=== PATIENT | male | born 1970 | race Caucasian/White ===

== ENCOUNTER 2016-07-27 17:53 | Emergency (ER) | payer MEDICAID ==
[2016-07-27] MEDS ORDERED: HYDROcod/ACETAM 5/325 MG TABLET PO STA (18:08)
[2016-07-27] MEDS ORDERED: HYDROcod/ACETAM 5/325 MG TABLET ONE (18:15)
== END 2016-07-27 19:09 | disposition home or self-care (01) ==
DX: S67.21XA Crushing injury of right hand, initial encounter (principal); W23.0XXA Caught, crushed, jammed, or pinched between moving objects, initial encounter; Y93.89 Activity, other specified; I10 Essential (primary) hypertension; F17.200 Nicotine dependence, unspecified, uncomplicated
CPT/HCPCS: 29125; 73130; 99283; A9270

== ENCOUNTER 2016-08-02 | Outpatient (CLI) | payer MEDICAID | END 2016-08-02 18:16 | disposition EMS.NT | DX: R10.11 Right upper quadrant pain (principal) ==

== ENCOUNTER 2016-08-02 18:59 | Emergency (ER) | payer MEDICAID ==
[2016-08-02] MEDS ORDERED: HYDROmorphone 1 MG/ML SYRINGE IVP STA (20:23)
[2016-08-02] MEDS ORDERED: SODIUM CHLORIDE 0.9% 1,000 ML IV ONE (20:23)
[2016-08-02] MEDS ORDERED: HYDROmorphone 1 MG/ML SYRINGE ONE (20:25)
[2016-08-02] MEDS ORDERED: MAG HYDROX/AL HYDROX/SIMETH 30 ML UDC PO STA (21:35)
[2016-08-02] MEDS ORDERED: LIDOCAINE VISCOUS 2% 15 ML UDC MM STA (21:35)
[2016-08-02] MEDS ORDERED: PHENobarb/HYOSCY/ATROPINE/SCOP 5 ML SYRINGE PO STA (21:35)
[2016-08-02] MEDS ORDERED: SUCRALFATE 1 GM/10 ML UDC PO STA (21:35)
[2016-08-02] MEDS ORDERED: ACETAMINOPHEN 1,000 MG/100 ML 100 ML IV STA (21:35)
[2016-08-02] MEDS ORDERED: PHENobarb/HYOSCY/ATROPINE/SCOP 5 ML SYRINGE PO ONE (21:45)
[2016-08-02] MEDS ORDERED: LIDOCAINE VISCOUS 2% 15 ML UDC MM ONE (21:45)
[2016-08-02] MEDS ORDERED: SUCRALFATE 1 GM/10 ML UDC ONE (21:45)
[2016-08-02] MEDS ORDERED: ACETAMINOPHEN 1,000 MG/100 ML 100 ML IV ONE (21:46)
[2016-08-02] MEDS ORDERED: MAG HYDROX/AL HYDROX/SIMETH 30 ML UDC ONE (21:46)
[2016-08-02] MEDS ORDERED: IOPAMIDOL-300 100 ML VIAL IVP ONE (22:59)
[2016-08-02] MEDS ORDERED: HYDROcod/ACETAM 5/325 MG TABLET PO STA (23:01)
[2016-08-02] MEDS ORDERED: HYDROcod/ACETAM 5/325 MG TABLET ONE (23:03)
[2016-08-02] MEDS ORDERED: FAMOTIDINE 20 MG TABLET PO STA (23:31)
[2016-08-02] MEDS ORDERED: FAMOTIDINE 20 MG TABLET ONE (23:33)
== END 2016-08-02 23:53 | disposition home or self-care (01) ==
DX: K29.70 Gastritis, unspecified, without bleeding (principal); F10.21 Alcohol dependence, in remission; Z90.49 Acquired absence of other specified parts of digestive tract; I10 Essential (primary) hypertension; F17.200 Nicotine dependence, unspecified, uncomplicated
CPT/HCPCS: 36415; 74177; 76705; 80053; 83690; 85025; 96361; 96365; 96375; 99285; A9270; J0131; J1170; Q9967

== ENCOUNTER 2016-08-09 | Outpatient (CLI) | payer MEDICAID | END 2016-08-09 17:08 | disposition critical access hospital (66) | DX: R07.9 Chest pain, unspecified (principal) | CPT/HCPCS: A0425; A0427 ==

== ENCOUNTER 2016-08-09 17:54 | Emergency (ER) | payer MEDICAID ==
[2016-08-09] MEDS ORDERED: HYDROcod/ACETAM 5/325 MG TABLET PO STA (18:05)
[2016-08-09] MEDS ORDERED: HYDROcod/ACETAM 5/325 MG TABLET ONE (18:09)
== END 2016-08-09 19:29 | disposition home or self-care (01) ==
DX: R07.89 Other chest pain (principal); I10 Essential (primary) hypertension; F17.200 Nicotine dependence, unspecified, uncomplicated; Z87.19 Personal history of other diseases of the digestive system; Z87.898 Personal history of other specified conditions
CPT/HCPCS: 36415; 71020; 80053; 83690; 84484; 85025; 93005; 93010; 99283; 99284; A9270

== ENCOUNTER 2016-08-28 | Emergency (ER) | payer MEDICAID | END 2016-08-28 08:43 | disposition home or self-care (01) ==

== ENCOUNTER 2016-09-20 18:09 | Emergency (ER) | payer MEDICAID ==
[2016-09-20] MEDS ORDERED: KETOROLAC 60 MG/2 ML VIAL IM STA (18:36)
[2016-09-20] MEDS ORDERED: DEXAMETHASONE 10 MG/ML VIAL PO STA (18:36)
[2016-09-20] MEDS ORDERED: DEXAMETHASONE 10 MG/ML VIAL ONE (18:47)
[2016-09-20] MEDS ORDERED: KETOROLAC 60 MG/2 ML VIAL ONE (18:48)
[2016-09-20] MEDS ORDERED: CHERRY SYRUP 10 ML UDC PO ONE (18:48)
== END 2016-09-20 18:56 | disposition home or self-care (01) ==
DX: I10 Essential (primary) hypertension (principal); M54.41 Lumbago with sciatica, right side; F17.200 Nicotine dependence, unspecified, uncomplicated
CPT/HCPCS: 96372; 99283; A9270

== ENCOUNTER 2016-10-07 10:29 | Emergency (ER) | payer MEDICAID | END 2016-10-07 12:45 | disposition home or self-care (01) | DX: S46.912A Strain of unspecified muscle, fascia and tendon at shoulder and upper arm level, left arm, initial encounter (principal); S40.022A Contusion of left upper arm, initial encounter; X50.0XXA Overexertion from strenuous movement or load, initial encounter; Y93.89 Activity, other specified; Y92.009 Unspecified place in unspecified non-institutional (private) residence as the place of occurrence of the external cause; I10 Essential (primary) hypertension; F17.200 Nicotine dependence, unspecified, uncomplicated ==

== ENCOUNTER 2016-11-03 14:09 | Emergency (ER) | payer MEDICAID ==
[2016-11-03] MEDS ORDERED: oxyCOD/ACETAMIN 5 MG/325 MG TABLET PO STA (15:15)
[2016-11-03] MEDS ORDERED: CEPHALEXIN 250 MG CAPSULE PO STA (15:15)
[2016-11-03] MEDS ORDERED: oxyCOD/ACETAMIN 5 MG/325 MG TABLET PO ONE (15:25)
[2016-11-03] MEDS ORDERED: CEPHALEXIN 250 MG CAPSULE PO ONE (15:25)
== END 2016-11-03 15:31 | disposition home or self-care (01) ==
DX: K04.7 Periapical abscess without sinus (principal); I10 Essential (primary) hypertension; F17.200 Nicotine dependence, unspecified, uncomplicated
CPT/HCPCS: 99283; A9270

== ENCOUNTER 2016-11-06 23:44 | Emergency (ER) | payer MEDICAID ==
[2016-11-07] MEDS: SODIUM CHLORIDE 0.9% 1,000 ML IV ONE (00:25)
[2016-11-07 00:37] LABS: BASOPHILS % (AUTO) 0.5 %; EOSINOPHILS # (AUTO) 0.1 10^3/uL (0.0-0.7); EOSINOPHILS % (AUTO) 2.5 %; HCT - HEMATOCRIT 41.3 % (42.0-52.0); HGB - HEMOGLOBIN 13.9 g/dL (14.0-18.0); LYMPHOCYTES # (AUTO) 1.7 10^3/uL (1.5-3.5); LYMPHOCYTES % (AUTO) 34.6 %; MEAN CORPUSCULAR HEMOGLOBIN 29.3 pg (27.0-31.0); MEAN CORPUSCULAR HGB CONC 33.7 g/dL (32.0-36.0); MEAN CORPUSCULAR VOLUME 86.8 fL (80.0-94.0); MEAN PLATELET VOLUME 7.9 fL (7.4-11.4); MONOCYTES # (AUTO) 0.5 10^3/uL (0.0-1.0); MONOCYTES % (AUTO) 10.3 %; NEUTROPHILS # (AUTO) 2.5 10^3/uL (1.5-6.6); NEUTROPHILS % (AUTO) 52.1 %; NUCLEATED RED BLOOD CELLS AUTO 0.2 /100WBC; RED BLOOD COUNT 4.76 10^6/uL (4.70-6.10); RED CELL DISTRIBUTION WIDTH 13.8 % (12.0-15.0); UNCORRECTED WHITE BLOOD COUNT 4.8 x10^3/uL; WHITE BLOOD COUNT 4.8 x10^3/uL (4.8-10.8)
[2016-11-07 00:44] VITALS: BP 159/98
[2016-11-07 00:46] LABS: ALBUMIN/GLOBULIN RATIO 1.2 (1.0-2.2); BILIRUBIN,TOTAL 0.3 mg/dL (0.2-1.0); CALCIUM 8.9 mg/dL (8.5-10.3); POTASSIUM 3.8 mmol/L (3.5-5.0); TOTAL PROTEIN 7.1 g/dL (6.7-8.2)
--- NOTE | 2016-11-07 01:28 | ED Physician Documentation ---
History of Present Illness - Stated complaint Stated Complaint: TOOTHACHE - Chief complaint Chief Complaint: Abd Pain - History obtained from History obtained from: Patient, Family - Additonal information Additional information: Patient is a 46 year old male with a history of diabetes who is presenting to the emergency department for nausea and vomiting. Patient states that he was diagnosed with a facial infection earlier this week. He was started on antibiotics (keflex). Patient has been taking the antibiotics and the infection has been improving but he has been throwing up and having a hard time keeping anything down. Patient talked to his friend who is a retired dentist and he told him he might be septic and that he should come to the emergency department. Review of Systems Constitutional: reports: Chills. denies: Fever Eyes: denies: Loss of vision, Photophobia Ears: denies: Ear pain, Drainage/discharge Nose: denies: Rhinorrhea / runny nose, Congestion, Epistaxis Throat: reports: Dental pain / toothache, Oral lesions / sores. denies: Sore throat Cardiac: denies: Chest pain / pressure, Palpitations, Calf pain Respiratory: denies: Dyspnea, Cough, Wheezing GI: reports: Abdominal Pain, Nausea, Vomiting. denies: Constipation, Diarrhea : denies: Dysuria, Frequency, Hesitancy Skin: denies: Rash, Lesions, Abrasion (s) Musculoskeletal: denies: Neck pain, Back pain Neurologic: denies: Generalized weakness, Focal weakness, Numbness Immunocompromised: denies: Immunocompromised PD PAST MEDICAL HISTORY - Past Medical History Cardiovascular: Hypertension Respiratory: None Neuro: None Endocrine/Autoimmune: None GI: Pancreatitis, Cholelithiasis : None HEENT: None Psych: None Musculoskeletal: None Derm: None - Past Surgical History Past Surgical History: Yes General: Cholecystectomy, Appendectomy - Present Medications Home Medications: Ambulatory Orders Medication Instructions Recorded Confirmed Lisinopril 5 mg PO DAILY #30 tablet 09/20/16 11/06/16 Cephalexin [Keflex] 500 mg PO QID #24 capsule 11/03/16 11/06/16 Oxycodone HCl/Acetaminophen 1 each PO Q6H PRN #15 tablet 11/03/16 11/06/16 [Percocet 5-325 mg Tablet] Ondansetron Odt [Zofran] 4 mg TL Q6H PRN #14 tablet 11/07/16 Penicillin V Potassium 500 mg PO Q6HR 7 Days 11/07/16 - Allergies Allergies/Adverse Reactions: Allergies Allergy/AdvReac Type Severity Reaction Status Date / Time No Known Drug Allergies Allergy Verified 11/06/16 23:52 - Social History Does the pt smoke?: Yes Smoking Status: Current every day smoker Does the pt drink ETOH?: Yes Does the pt have substance abuse?: No - Immunizations Immunizations are current?: Yes - POLST Patient has POLST: No PD ED PE NORMAL - Vitals Vital signs reviewed: Yes - General General: Alert and oriented X 3, No acute distress, Well developed/nourished - HEENT HEENT: Atraumatic, PERRL, Pharynx benign - Neck Neck: Supple, no meningeal sign, No JVD - Cardiac Cardiac: RRR, No murmur - Respiratory Respiratory: No respiratory distress, Clear bilaterally - Abdomen Abdomen: Soft, Non tender, Non distended - Derm Derm: Normal color, Warm and dry, No rash - Extremities Extremities: No deformity, No tenderness to palpate, Normal ROM s pain - Neuro Neuro: Alert and oriented X 3, 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, No motor deficit, No sensory deficit, Normal speech - Psych Psych: Normal mood, Normal affect PD ED PE EXPANDED - HEENT HEENT: Other (multiple dental caries, minimal facial swelling, no surrounding cellulitis) Results - Vitals Vitals: Vital Signs - 24 hr 11/06/16 11/07/16 23:48 00:42 Temperature 36.4 C L Heart Rate 90 79 Respiratory 20 19 Rate Blood Pressure 174/111 H 159/98 H O2 Saturation 98 98 Oxygen O2 Source Room air - Labs Labs: Laboratory Tests 11/07/16 11/07/16 00:25 00:25 WBC 4.8 RBC 4.76 Hgb 13.9 L Hct 41.3 L MCV 86.8 MCH 29.3 MCHC 33.7 RDW 13.8 Plt Count 194 MPV 7.9 Neut # 2.5 Lymph # 1.7 Vil[place] # 0.5 Eos # 0.1 Baso # 0.0 Absolute Nucleated RBC 0.01 Nucleated RBCs 0.2 Sodium 140 Potassium 3.8 Chloride 104 Carbon Dioxide 28 Anion Gap 8.0 BUN 10 Creatinine 1.0 Estimated GFR (MDRD) 80 L Glucose 108 H Calcium 8.9 Total Bilirubin 0.3 AST 62 H ALT 60 Alkaline Phosphatase 255 H Total Protein 7.1 Albumin 3.8 Globulin 3.3 Albumin/Globulin Ratio 1.2 Lipase 19 L PD MEDICAL DECISION MAKING - ED course Complexity details: reviewed old records, reviewed results, re-evaluated patient ED course: Patient was seen and examined at bedside. IV access was gained and labs were drawn. Patient was treated with a fluid bolus. Patient was not febrile, nor was he tachycardic. When patient's diagnostics came back he did not fulfill any of the sirs criteria. Patient had no episodes of emesis while in the emergency department. Patient was given detailed discharge and return instructions. Patient was stable for discharge with outpatient follow up. Departure - Departure Disposition: Home, Self Care Clinical Impression: Dental abscess Condition: Good Instructions: ED Abscess Dental Follow-Up: primary,care provider [Other] Prescriptions: Penicillin V Potassium 500 mg PO Q6HR 7 Days Ondansetron Odt [Zofran] 4 mg TL Q6H PRN #14 tablet PRN Reason: Nausea / Vomiting Comments: Your diagnostics today were within normal limits. Your symptoms are more likely secondary to side effect of the medication as opposed to sepsis. You have been prescribed zofran and you should take it a half hour before taking your medication. You should try to complete the entire course of antibiotics. If you are unable to you may switch to the penicillin. You should still follow up with your pmd or dentist for further evaluation in a few days.
== END 2016-11-07 01:52 | disposition home or self-care (01) ==
LOC: ED 23:44
DX: K04.7 Periapical abscess without sinus (principal); E11.9 Type 2 diabetes mellitus without complications; I10 Essential (primary) hypertension; F17.200 Nicotine dependence, unspecified, uncomplicated
CPT/HCPCS: 36415; 80053; 83690; 85025; 99283

== ENCOUNTER 2016-12-19 07:26 | Emergency (ER) | payer MEDICAID ==
[2016-12-19] MEDS ORDERED: ACETAMINOPHEN 325 MG TABLET PO STA (08:05)
[2016-12-19] MEDS ORDERED: CYCLOBENZAPRINE 10 MG TABLET PO STA (08:05)
[2016-12-19] MEDS ORDERED: DEXAMETHASONE 10 MG/ML VIAL PO STA (08:05)
[2016-12-19] MEDS ORDERED: CHERRY SYRUP 10 ML UDC PO ONE (08:07)
[2016-12-19] MEDS ORDERED: CYCLOBENZAPRINE 10 MG TABLET PO ONE (08:07)
[2016-12-19] MEDS ORDERED: DEXAMETHASONE 10 MG/ML VIAL ONE (08:07)
[2016-12-19] MEDS ORDERED: ACETAMINOPHEN 325 MG TABLET PO ONE (08:07)
--- NOTE | 2016-12-19 08:14 | ED Physician Documentation ---
History of Present Illness - Stated complaint Stated Complaint: R SHOULDER PX - Chief complaint Chief Complaint: Ext Problem - Additonal information Additional information: hx from pt 46 male [address] ER visit to [facility] in 2017 to ER today for R shoulder pain of 1 month duration states it started a month ago while using a car [place] (not a job injury per pt) worse with movement coral ABD pain to anterior/lateral shoulder, radiates up lateral neck and down radial arm to thumb no numbness or weakness no fever cough CP dyspnea abd pain or leg swelling Review of Systems Constitutional: denies: Fever, Chills Cardiac: denies: Chest pain / pressure Respiratory: denies: Dyspnea, Cough GI: denies: Abdominal Pain Musculoskeletal: reports: Neck pain, Joint pain Neurologic: denies: Focal weakness, Numbness Endocrine: denies: Easy bruising / bleeding Immunocompromised: denies: Immunocompromised PD PAST MEDICAL HISTORY - Past Medical History Cardiovascular: Hypertension Respiratory: None Neuro: None Endocrine/Autoimmune: None GI: Pancreatitis, Cholelithiasis : None HEENT: None Psych: None Musculoskeletal: None Derm: None - Past Surgical History Past Surgical History: Yes General: Cholecystectomy, Appendectomy - Present Medications Home Medications: Ambulatory Orders Medication Instructions Recorded Confirmed Lisinopril 5 mg PO DAILY #30 tablet 09/20/16 12/19/16 Cyclobenzaprine [Flexeril] 10 mg PO TID PRN #20 tablet 12/19/16 predniSONE [Deltasone] 20 mg PO [id number] #21 tab 12/19/16 - Allergies Allergies/Adverse Reactions: Allergies Allergy/AdvReac Type Severity Reaction Status Date / Time No Known Drug Allergies Allergy Verified 12/19/16 07:30 - Social History Does the pt smoke?: Yes Smoking Status: Current every day smoker Does the pt drink ETOH?: Yes Does the pt have substance abuse?: No - Immunizations Immunizations are current?: Yes - POLST Patient has POLST: No PD ED PE NORMAL - Vitals Vital signs reviewed: Yes - General General: Alert and oriented X 3 - HEENT HEENT: Atraumatic - Neck Neck: No bony TTP (and no redness or swelling) - Cardiac Cardiac: RRR - Respiratory Respiratory: No respiratory distress, Clear bilaterally - Abdomen Abdomen: Soft, Non tender - Extremities Extremities: No edema, No calf tenderness / cord, Other (R shoulder TTP anterior , no erythema warmth or sig swelling, pain with ABD but less so with ext and int ext, shoulder ABD bicep tricep wrist ext finger ABD OK 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, + sensation to ulnar median radial distribution, strong radial pulse, brisk cap refill) - Neuro Neuro: No motor deficit, No sensory deficit Results - Vitals Vitals: Vital Signs - 24 hr 12/19/16 07:28 Temperature 36.5 C Heart Rate 95 Respiratory 17 Rate Blood Pressure 168/115 H O2 Saturation 99 Oxygen O2 Source Room air PD MEDICAL DECISION MAKING - ED course ED course: seems like muscular R shoulder pain no sign of septic jt no blunt trauma recalled - more of an overuse type injury some radicualr componennt as well will tx with steroids for radicular pain, tylenol and mm relaxant, sling as needed, note for work and rec ortho referral - given [place] of [place] Departure - Departure Disposition: 01 Home, Self Care Clinical Impression: Shoulder impingement Qualifiers: Laterality: right Qualified Code(s): M75.41 - Impingement syndrome of right shoulder Condition: Good Instructions: Impingement Syndrome Follow-Up: [facility] [Provider Group] Prescriptions: predniSONE [Deltasone] 20 mg PO [id number] #21 tab Cyclobenzaprine [Flexeril] 10 mg PO TID PRN #20 tablet PRN Reason: Spasms Comments: In addition to the steroids and muscle relaxant, you can take tylenol for the pain and apply ice for up to 20 min at a time. You can also try apply the lidocaine patches for up to 12 hr at a time directly to the shoulder Wear the sling as needed for comfort - but be sure to do some range of motion with your shoulder every day to prevent joint stiffness and adhesions Please follow up with orthopedics Also please get your blood pressure rechecked - it was high today Forms: Activity restrictions
[2016-12-19 08:30] VITALS: BP 145/88
== END 2016-12-19 08:30 | disposition home or self-care (01) ==
LOC: ED 07:26
DX: M75.41 Impingement syndrome of right shoulder (principal); I10 Essential (primary) hypertension; F17.200 Nicotine dependence, unspecified, uncomplicated
CPT/HCPCS: 99283; A9270

== ENCOUNTER 2017-03-30 00:11 | Emergency (ER) | payer MEDICAID ==
--- NOTE | 2017-03-30 01:56 | ED Physician Documentation ---
PD HPI LOWER EXT INJURY - Stated complaint Stated Complaint: RT KNEE PAIN - Chief complaint Chief Complaint: Ext Problem - History obtained from History obtained from: Patient - History of Present Illness PD HPI LOW EXT INJURY LOCATION: Right, Knee Type of injury: Twist Timing - onset: How many weeks ago (has had some pains in knee intermittently for years with clicking and popping at times. He will feel it lock up and has to force knee straight to loosen it. It has been hurting more the past 3 weeks and has been unable to walk on it reasonably the past 1-2 days. 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 No: Weakness, Numbness Similar symptoms before: No diagnosis Recently seen: Not recently seen Review of Systems Constitutional: denies: Fever, Chills, Myalgias Skin: denies: Rash, Lesions Musculoskeletal: reports: Joint pain, Joint swelling. denies: Back pain Neurologic: denies: Focal weakness, Numbness PD PAST MEDICAL HISTORY - Past Medical History Cardiovascular: Hypertension Respiratory: None Neuro: None Endocrine/Autoimmune: None GI: Pancreatitis, Cholelithiasis : None HEENT: None Psych: None Musculoskeletal: None Derm: None - Past Surgical History Past Surgical History: Yes General: Cholecystectomy, Appendectomy - Present Medications Home Medications: Ambulatory Orders Medication Instructions Recorded Confirmed HYDROcod/ACETAM 5/325 [[place] 5/325] 1 tab PO Q6H PRN #15 tablet 03/30/17 Naproxen 375 mg PO BID #20 tablet 03/30/17 - Allergies Allergies/Adverse Reactions: Allergies Allergy/AdvReac Type Severity Reaction Status Date / Time No Known Drug Allergies Allergy Verified 03/30/17 00:55 - Social History Does the pt smoke?: Yes Smoking Status: Current every day smoker Does the pt drink ETOH?: Yes Does the pt have substance abuse?: No - Immunizations Immunizations are current?: Yes - POLST Patient has POLST: No PD ED PE NORMAL - Vitals Vital signs reviewed: Yes - General General: Alert and oriented X 3, Well developed/nourished, Other (appears in pain and is guarding ROM of the right knee. ) - Back Back: No spinal TTP - Derm Derm: Normal color, Warm and dry, No rash - Extremities Extremities: Normal ROM s pain, Other (right knee with mild effusion. Guarded ROM limits exam. No noted laxity nor pain with cruciate testing. Collateral testing hurts laterally without widening. ROM and meniscal loading to lateral aspect causes pain. No noted click/pop. ) - Neuro Neuro: Alert and oriented X 3, No motor deficit, No sensory deficit, Normal speech Results - Vitals Vitals: Oxygen O2 Source Room air PD MEDICAL DECISION MAKING - ED course Complexity details: considered differential (knee acts like it has had meniscal symptoms and now is likely torn meniscus. Did not see value in xrays. To see ortho; they likely will consider MRI. ), d/w patient Departure - Departure Disposition: 01 Home, Self Care Clinical Impression: Knee pain, acute Qualifiers: Laterality: right Qualified Code(s): M25.561 - Pain in right knee Acute meniscal injury of right knee Qualifiers: Encounter type: initial encounter Qualified Code(s): S83.8X1A - Sprain of other specified parts of right knee, initial encounter Condition: Stable Record reviewed to determine appropriate education?: Yes Instructions: ED Meniscal Injury Knee Poss Follow-Up: Sherrie Reid ARNP [Primary Care Provider] - Dana Lantigua MD [Provider Admit Priv/Credential] - Prescriptions: Naproxen 375 mg PO BID #20 tablet HYDROcod/ACETAM 5/325 [[place] 5/325] 1 tab PO Q6H PRN #15 tablet PRN Reason: Pain Comments: Knee brace when up and around to help reduce motion on the cartilage. I think this is a meniscal tear. Follow-up with orthopedics, call later today for an appointment. They likely will see within the next week. Crutches if needed for comfort but you do not have to be on crutches. Naproxen twice daily for the next 7-10 days. Add Tylenol or hydrocodone if needed for pain. Follow-up with orthopedics regarding further assessment with exam and possible imaging. Forms: Activity restrictions Discharge Date/Time: 03/30/17 03:30
[2017-03-30] MEDS ORDERED: HYDROcod/ACET 5/325 Prepack 6 PO ONE ×2 (02:42→03:14)
[2017-03-30] MEDS ORDERED: IBUPROFEN 600 MG TABLET PO STA (02:42)
[2017-03-30] MEDS ORDERED: HYDROcod/ACETAM 5/325 MG TABLET PO STA (02:42)
[2017-03-30] MEDS ORDERED: IBUPROFEN 600 MG TABLET PO ONE (03:14)
[2017-03-30] MEDS ORDERED: HYDROcod/ACETAM 5/325 MG TABLET ONE (03:14)
[2017-03-30 03:42] VITALS: BP 136/88
== END 2017-03-30 03:30 | disposition home or self-care (01) ==
LOC: ED 00:11
DX: S83.8X1A Sprain of other specified parts of right knee, initial encounter (principal); X50.0XXA Overexertion from strenuous movement or load, initial encounter; M25.561 Pain in right knee; I10 Essential (primary) hypertension; Z87.898 Personal history of other specified conditions; F17.200 Nicotine dependence, unspecified, uncomplicated
CPT/HCPCS: 99283; A9270

== ENCOUNTER 2017-09-03 10:05 | Emergency (ER) | payer MEDICAID ==
[2017-09-03 10:21] VITALS: BP 224/111
--- NOTE | 2017-09-03 12:46 | ED Physician Documentation ---
PD HPI LOWER EXT INJURY - Stated complaint Stated Complaint: KNEE PX - Chief complaint Chief Complaint: Ext Problem - History obtained from History obtained from: Patient - History of Present Illness PD HPI LOW EXT INJURY LOCATION: Both, Knee Type of injury: No: Fall, Twist PD PAST MEDICAL HISTORY - Past Medical History Past Medical History: Yes Cardiovascular: Hypertension Respiratory: None Neuro: None Endocrine/Autoimmune: None GI: Pancreatitis, Cholelithiasis : None HEENT: None Psych: None Musculoskeletal: None Derm: None - Past Surgical History Past Surgical History: Yes General: Cholecystectomy, Appendectomy - Present Medications Home Medications: Ambulatory Orders Medication Instructions Recorded Confirmed HYDROcod/ACETAM 5/325 [[place] 5/325] 1 tab PO Q6H PRN #15 tablet 03/30/17 Naproxen 375 mg PO BID #20 tablet 03/30/17 Dexamethasone [Decadron] 4 mg PO DAILY #5 tablet 09/03/17 HYDROcodone/ACET 7.5/325 [[place] 1 each PO Q6H PRN #20 tablet 09/03/17 7.5/325] - Allergies Allergies/Adverse Reactions: Allergies Allergy/AdvReac Type Severity Reaction Status Date / Time No Known Drug Allergies Allergy Verified 03/30/17 00:55 - Social History Does the pt smoke?: Yes Smoking Status: Current every day smoker Does the pt drink ETOH?: Yes Does the pt have substance abuse?: No - Immunizations Immunizations are current?: Yes - POLST Patient has POLST: No PD ED PE NORMAL - Vitals Vital signs reviewed: Yes - General General: Alert and oriented X 3, No acute distress, Well developed/nourished, Other (limping gait favoiring right knee. ) - Neck Neck: Supple, no meningeal sign, No adenopathy - Cardiac Cardiac: RRR, No murmur - Respiratory Respiratory: Clear bilaterally - Derm Derm: Normal color, Warm and dry, No rash - Extremities Extremities: No edema, No calf tenderness / cord, Other (right knee with tenderness with minimal effusion. No Noted redness nor sores. ROm hurts but is not stuck/limited. ) Results - Vitals Vitals: Vital Signs - 24 hr 09/03/17 09/03/17 10:19 13:30 Temperature 36.5 C Heart Rate 90 78 Respiratory 17 17 Rate Blood Pressure 224/111 H O2 Saturation 99 Oxygen O2 Source Room air PD MEDICAL DECISION MAKING - ED course Complexity details: re-evaluated patient (I offered steroid and Marcaine injection at the knee (his cartilage is worn out, so no concern for single injection). I presume Ortho did not think Synvisc or such would work for him. Will give some pain meds short term. ), considered differential, d/w patient Departure - Departure Disposition: 01 Home, Self Care Clinical Impression: Knee pain, chronic Qualifiers: Laterality: right Qualified Code(s): M25.561 - Pain in right knee Condition: Stable Record reviewed to determine appropriate education?: Yes Instructions: ED Degenerative Joint Disease Follow-Up: Cierra Romero ARNP [Primary Care Provider] - Prescriptions: Dexamethasone [Decadron] 4 mg PO DAILY #5 tablet HYDROcodone/ACET 7.5/325 [[place] 7.5/325] 1 each PO Q6H PRN #20 tablet PRN Reason: Pain Comments: Try the hinged knee brace and see if that supports the near little bit better without causing stiffening. Decadron steroid anti-inflammatory for 5 days see if that helps. Continue hydrocodone if needed for pain. Consider an injection in the knee with steroid and pain medicine just to allow some improvement over the short-term. We could do that here potentially although the orthopedics can do it as well. Follow-up with orthopedist as planned in a few weeks. Discharge Date/Time: 09/03/17 13:31
[2017-09-03] MEDS ORDERED: DEXAMETHASONE 10 MG/ML VIAL PO STA (13:08)
[2017-09-03] MEDS ORDERED: HYDROcod/ACETAM 5/325 MG TABLET PO STA (13:08)
[2017-09-03] MEDS ORDERED: CHERRY SYRUP 10 ML UDC PO ONE (13:35)
== END 2017-09-03 13:31 | disposition home or self-care (01) ==
LOC: ED 10:05
DX: M25.561 Pain in right knee (principal); I10 Essential (primary) hypertension; F17.200 Nicotine dependence, unspecified, uncomplicated; Z79.891 Long term (current) use of opiate analgesic
CPT/HCPCS: 99283; A9270

== ENCOUNTER 2017-11-25 23:46 | Emergency (ER) | payer MEDICAID ==
[2017-11-26] MEDS ORDERED: cefTRIAXone 2 GM in SODIUM CHLORIDE 0.9% MINIBAG 100 ML IV STA (00:05)
[2017-11-26] MEDS ORDERED: SODIUM CHLORIDE 0.9% 1,000 ML IV ONE (00:05)
[2017-11-26 00:51] LABS: BASOPHILS # (AUTO) 0.1 10^3/uL (0.0-0.1); BASOPHILS % (AUTO) 0.5 %; EOSINOPHILS # (AUTO) 0.2 10^3/uL (0.0-0.7); EOSINOPHILS % (AUTO) 1.8 %; HGB - HEMOGLOBIN 13.3 g/dL (14.0-18.0); LYMPHOCYTES # (AUTO) 1.8 10^3/uL (1.5-3.5); LYMPHOCYTES % (AUTO) 18.6 %; MEAN CORPUSCULAR HEMOGLOBIN 28.9 pg (27.0-31.0); MEAN CORPUSCULAR HGB CONC 33.3 g/dL (32.0-36.0); MEAN CORPUSCULAR VOLUME 86.8 fL (80.0-94.0); MEAN PLATELET VOLUME 8.5 fL (7.4-11.4); MONOCYTES # (AUTO) 0.5 10^3/uL (0.0-1.0); MONOCYTES % (AUTO) 5.5 %; NEUTROPHILS # (AUTO) 7.2 10^3/uL (1.5-6.6); NEUTROPHILS % (AUTO) 73.6 %; PLT - PLATELET COUNT 137 10^3/uL (130-450); RED CELL DISTRIBUTION WIDTH 13.8 % (12.0-15.0); WHITE BLOOD COUNT 9.8 x10^3/uL (4.8-10.8)
[2017-11-26 01:02] LABS: ALBUMIN 3.6 g/dL (3.2-5.5); ALBUMIN/GLOBULIN RATIO 0.9 (1.0-2.2); BILIRUBIN,TOTAL 0.6 mg/dL (0.2-1.0); CALCIUM 8.5 mg/dL (8.5-10.3); TOTAL PROTEIN 7.5 g/dL (6.7-8.2)
[2017-11-26] MEDS ORDERED: KETOROLAC 60 MG/2 ML VIAL IVP STA (01:05)
[2017-11-26] MEDS ORDERED: SULFAMETH/TRIMETH DS 800/160 MG TABLET PO STA (01:24)
--- NOTE | 2017-11-26 01:29 | ED Physician Documentation ---
PD HPI SKIN - Stated complaint Stated Complaint: R LEG PX - Chief complaint Chief Complaint: Ext Problem - History obtained from History obtained from: Patient - History of Present Illness Timing - onset: How many days ago (3) Timing - details: Gradual onset, Still present Location: RLE Quality / character: Painful Associated symptoms: Fever Similar symptoms before: No diagnosis Recently seen: Not recently seen - Additional information Additional information: Patient is a 47 year old male who is presenting to the emergency department for pain, swelling and redness of his right lower leg. patient states that it has been going on for the last few days. patient states that it has been spreading up his leg. patient states that he has mild fevers as well. Patient has a history of drug abuse in the past but states that he is not currently injecting. Review of Systems Constitutional: reports: Fever Eyes: reports: Reviewed and negative Ears: reports: Reviewed and negative GI: reports: Nausea. denies: Abdominal Pain, Vomiting, Constipation, Diarrhea Skin: reports: Rash, Lesions Musculoskeletal: reports: Extremity pain, Extremity swelling Immunocompromised: denies: Immunocompromised PD PAST MEDICAL HISTORY - Past Medical History Cardiovascular: Hypertension Respiratory: None Endocrine/Autoimmune: None GI: Pancreatitis, Cholelithiasis : None HEENT: None Psych: None Musculoskeletal: None Derm: None - Past Surgical History Past Surgical History: Yes General: Cholecystectomy, Appendectomy - Present Medications Home Medications: Ambulatory Orders Medication Instructions Recorded Confirmed HYDROcod/ACETAM 5/325 [[place] 5/325] 1 tab PO Q6H PRN #15 tablet 03/30/17 Naproxen 375 mg PO BID #20 tablet 03/30/17 Dexamethasone [Decadron] 4 mg PO DAILY #5 tablet 09/03/17 HYDROcodone/ACET 7.5/325 [[place] 1 each PO Q6H PRN #20 tablet 09/03/17 7.5/325] Cephalexin [Keflex] 500 mg PO Q6H 7 Days capsule 11/26/17 Sulfamethox/Trimeth 800/160 1 each PO BID #14 tablet 11/26/17 [Bactrim Ds 800/160] - Allergies Allergies/Adverse Reactions: Allergies Allergy/AdvReac Type Severity Reaction Status Date / Time No Known Drug Allergies Allergy Verified 11/26/17 00:10 - Social History Does the pt smoke?: Yes Smoking Status: Current every day smoker Does the pt drink ETOH?: Yes Does the pt have substance abuse?: No - Immunizations Immunizations are current?: Yes - POLST Patient has POLST: No PD ED PE NORMAL - Vitals Vital signs reviewed: Yes - General General: Alert and oriented X 3, No acute distress - HEENT HEENT: Atraumatic, Moist mucous membranes - Neck Neck: Supple, no meningeal sign - Cardiac Cardiac: RRR - Respiratory Respiratory: No respiratory distress - Neuro Neuro: Alert and oriented X 3 Eye Opening: Spontaneous PD ED PE EXPANDED - Male Male : Normal lie/cremastaric, Other (no crepitus). No: Tenderness - Derm Derm: Rash (rash consistent with cellulitis, no drainable abscess) - Extremities ASHLEY LE visual: 1 - tenderness (cellulitis) 2 - tenderness (cellulits) Results - Vitals Vitals: Vital Signs - 24 hr 11/26/17 11/26/17 00:08 01:36 Temperature 36.4 C L Heart Rate 93 91 Respiratory 18 18 Rate Blood Pressure 159/92 H 151/98 H O2 Saturation 100 98 Oxygen O2 Source Room air - Labs Labs: Laboratory Tests 11/26/17 11/26/17 11/26/17 00:40 00:40 00:40 WBC 9.8 RBC 4.60 L Hgb 13.3 L Hct 39.9 L MCV 86.8 MCH 28.9 MCHC 33.3 RDW 13.8 Plt Count 137 MPV 8.5 Neut # 7.2 H Lymph # 1.8 [place] # 0.5 Eos # 0.2 Baso # 0.1 Absolute Nucleated RBC 0.00 Nucleated RBC % 0.0 Sodium 134 L Potassium 3.5 Chloride 101 Carbon Dioxide 26 Anion Gap 7.0 BUN 11 Creatinine 1.0 Estimated GFR (MDRD) 80 L Glucose 117 H Lactic Acid < 0.3 L Calcium 8.5 Total Bilirubin 0.6 AST 43 H ALT 48 Alkaline Phosphatase 239 H Total Protein 7.5 Albumin 3.6 Globulin 3.9 Albumin/Globulin Ratio 0.9 L Lipase 17 L PD MEDICAL DECISION MAKING - ED course Complexity details: reviewed old records, reviewed results, re-evaluated patient , considered differential, d/w patient ED course: Patient was seen and examined at bedside. IV access was gained and labs were drawn. patient's cellulitis was significant but there was no sign of gangrene. patient was treated with a dose of rocephin. patient's labs were unremarkable. patient was able to tolerate PO and was also given a dose of bactrim. patient required no further work up and was stable for discharge with outpatient follow up. Departure - Departure Disposition: 01 Home, Self Care Clinical Impression: Cellulitis Condition: Good Instructions: ED Infec Skin Cellulitis Follow-Up: Cierra Romero ARNP [Primary Care Provider] - Prescriptions: Cephalexin [Keflex] 500 mg PO Q6H 7 Days capsule Sulfamethox/Trimeth 800/160 [Bactrim Ds 800/160] 1 each PO BID #14 tablet Comments: Your symptoms today are being caused by a skin infection. You will need to be on two different antibiotics, keflex and bactrim. You will take them both for the entire week. You should monitor your infection to make sure that it is getting smaller. If your symptoms don't start improving over the next 48 hours you should return to the emergency department for evaluation. Otherwise you should follow up with your doctor this week. Discharge Date/Time: 11/26/17 01:44
[2017-11-26 01:36] VITALS: BP 151/98
== END 2017-11-26 01:44 | disposition home or self-care (01) ==
LOC: ED 23:46
DX: L03.115 Cellulitis of right lower limb (principal); I10 Essential (primary) hypertension; F17.200 Nicotine dependence, unspecified, uncomplicated
CPT/HCPCS: 36415; 80053; 83605; 83690; 85025; 87040; 96365; 99283; A9270

== ENCOUNTER 2018-03-05 17:43 | Emergency (ER) | payer MEDICAID ==
--- NOTE | 2018-03-05 18:03 | ED Physician Documentation ---
PD HPI SKIN - Stated complaint Stated Complaint: BUG BITE - Chief complaint Chief Complaint: Ext Problem - History obtained from History obtained from: Patient - History of Present Illness Timing - onset: How many weeks ago (1) Timing - duration: Weeks (1) Timing - details: Gradual onset, Still present Location: LUE (dorsum of hand) Quality / character: Painful, Discolored (red), Swelling, Draining (mildhe thought he had a bug bite a week ago, with small red and tender area on hand. This has grown in size the past 1-2 days.) Associated symptoms: No: Fever, N/V/D Contributing factors: Insect bite /sting (he believes it was insect bite initially) Recently seen: Not recently seen Review of Systems Constitutional: denies: Fever, Chills, Myalgias GI: denies: Nausea, Vomiting, Diarrhea Skin: reports: Lesions Neurologic: denies: Focal weakness, Numbness PD PAST MEDICAL HISTORY - Past Medical History Past Medical History: Yes Cardiovascular: Hypertension Respiratory: None Endocrine/Autoimmune: None GI: Pancreatitis, Cholelithiasis : None HEENT: None Psych: None Musculoskeletal: None Derm: None - Past Surgical History Past Surgical History: Yes General: Cholecystectomy, Appendectomy - Present Medications Home Medications: Ambulatory Orders Medication Instructions Recorded Confirmed Naproxen 375 mg PO BID #20 tablet 03/30/17 Doxycycline Monohydrate 100 mg PO BID #14 tablet 03/05/18 Naproxen [Naprosyn] 500 mg PO BID PRN #20 tablet 03/05/18 - Allergies Allergies/Adverse Reactions: Allergies Allergy/AdvReac Type Severity Reaction Status Date / Time No Known Drug Allergies Allergy Verified 03/05/18 17:48 - Social History Does the pt smoke?: Yes Smoking Status: Current every day smoker Does the pt drink ETOH?: Yes Does the pt have substance abuse?: No - Immunizations Immunizations are current?: Yes - POLST Patient has POLST: No PD ED PE NORMAL - Vitals Vital signs reviewed: Yes - General General: Alert and oriented X 3, No acute distress, Well developed/nourished - Derm Derm: Normal color, Warm and dry - Extremities Extremities: Other (dorsum left hand over 2nd MC shaft with local area of redness, swelling, fluctuance. Had slight drainage today. ) - Neuro Neuro: No motor deficit, No sensory deficit Results - Vitals Vitals: Oxygen O2 Source Room air Procedures - Abscess I&D (location) dorsum left hand Preparation: Confirmed with ultrasound, Lidocaine 1%, With epi Incision: Incised with scalpel, Purulent drainage (small amount), Irrigated. No : Packed Other: Pt tolerated well, Dressing applied, Antibiotic prescribed PD MEDICAL DECISION MAKING - ED course Complexity details: considered differential (seems could be bug bite, but with surrounding redness and swelling, is now likely abscess. ), d/w patient - Sepsis Event Vital Signs: Oxygen O2 Source Room air Departure - Departure Disposition: 01 Home, Self Care Clinical Impression: Bug bite of hand, infected Qualifiers: Encounter type: initial encounter Laterality: left Qualified Code(s): S60.562A - Insect bite (nonvenomous) of left hand, initial encounter Condition: Stable Record reviewed to determine appropriate education?: Yes Instructions: ED Abscess IandD Prescriptions: Doxycycline Monohydrate 100 mg PO BID #14 tablet Naproxen [Naprosyn] 500 mg PO BID PRN #20 tablet PRN Reason: Pain Comments: Warm compresses to the area. Thomas wrap for swelling. This should improve over the next few days to a week. Doxycycline twice daily for a week for the infection and naproxen twice daily for inflammation and pain. Add Tylenol if needed. Regular use of the hand is okay with perhaps light use for the first day or 2 in keeping it covered with a Band-Aid or wrap. Discharge Date/Time: 03/05/18 18:59
[2018-03-05] MEDS ORDERED: IBUPROFEN 600 MG TABLET PO STA (18:36)
[2018-03-05] MEDS ORDERED: DOXYCYCLINE 100 MG TABLET PO STA (18:36)
[2018-03-05 18:52] VITALS: BP 148/99
== END 2018-03-05 18:59 | disposition home or self-care (01) ==
LOC: ED 17:43
DX: S60.562A Insect bite (nonvenomous) of left hand, initial encounter (principal); L08.9 Local infection of the skin and subcutaneous tissue, unspecified; I10 Essential (primary) hypertension; F17.200 Nicotine dependence, unspecified, uncomplicated
CPT/HCPCS: 10060; 99283; A9270

== ENCOUNTER 2018-03-25 08:56 | Outpatient (CLI) | payer MEDICAID | END 2018-03-25 08:57 | disposition home or self-care (01) | LOC: LAB.F 08:56 | PROVIDERS: ATTEND Internal Medicine | DX: I10 Essential (primary) hypertension (principal); R31.9 Hematuria, unspecified ==

== ENCOUNTER 2018-04-05 08:38 | Outpatient (CLI) | payer MEDICAID ==
[2018-04-05 11:49] LABS: HGB - HEMOGLOBIN 14.1 g/dL (14.0-18.0); MEAN CORPUSCULAR HGB CONC 33.8 g/dL (32.0-36.0); MEAN CORPUSCULAR VOLUME 85.7 fL (80.0-94.0); MEAN PLATELET VOLUME 9.1 fL (7.4-11.4); RED BLOOD COUNT 4.88 10^6/uL (4.70-6.10); RED CELL DISTRIBUTION WIDTH 14.1 % (12.0-15.0); WHITE BLOOD COUNT 4.3 x10^3/uL (4.8-10.8)
[2018-04-05 11:57] LABS: BILIRUBIN,TOTAL 0.6 mg/dL (0.2-1.0); CALCIUM 9.4 mg/dL (8.5-10.3); CREATININE 1.1 mg/dL (0.6-1.2); TOTAL PROTEIN 8.1 g/dL (6.7-8.2)
== END 2018-04-05 08:39 | disposition home or self-care (01) ==
LOC: LAB.F 08:38
PROVIDERS: ATTEND Internal Medicine
DX: I10 Essential (primary) hypertension (principal); R31.9 Hematuria, unspecified
CPT/HCPCS: 36415; 80053; 85027

== ENCOUNTER 2018-04-06 20:22 | Outpatient (CLI) | payer MEDICAID | END 2018-04-06 20:23 | disposition critical access hospital (66) | LOC: EMS 20:22 | PROVIDERS: ATTEND Surgery | DX: R07.9 Chest pain, unspecified (principal); R11.0 Nausea; R42 Dizziness and giddiness | CPT/HCPCS: A0425; A0427; A0999 ==

== ENCOUNTER 2018-04-06 20:40 | Emergency (ER) | payer MEDICAID ==
--- NOTE | 2018-04-06 20:43 | ED Physician Documentation ---
PD HPI CHEST PAIN - Stated complaint Stated Complaint: HTN,DIZZY, CP - Chief complaint Chief Complaint: Cardiac - History obtained from History obtained from: Patient - History of Present Illness Timing - onset: How many days ago (he has felt ill with malaise, feverish, and aches for 3 days. Today has had some dyspnea and chest tightness. Has noted BP elevated the past 3 days in particular but has been elevated some for the past month.) Timing - details: Gradual onset, Still present, Waxing and waning Quality: Pressure, Tightness (today) Location: Substernal Radiation: No: Jaw, Neck, Back Worsened by: No: Inspiration, Palpation Associated symptoms: Shortness of air, General Weakness, Cough (mild). No: Diaphoresis, Nausea, Feeling faint / dizzy, Palpitations Similar symptoms before: Has not had sx before Review of Systems Constitutional: reports: Fever (for 2-3 days), Chills, Myalgias Nose: denies: Rhinorrhea / runny nose, Congestion Throat: denies: Sore throat Cardiac: reports: Chest pain / pressure. denies: Palpitations, Pedal edema, Calf pain Respiratory: reports: Dyspnea, Cough. denies: Wheezing Skin: denies: Rash, Lesions Neurologic: reports: Generalized weakness. denies: Focal weakness, Numbness, Near syncope, Altered mental status PD PAST MEDICAL HISTORY - Past Medical History Cardiovascular: Hypertension Respiratory: None Endocrine/Autoimmune: None GI: Pancreatitis, Cholelithiasis : None HEENT: None Psych: None Musculoskeletal: None Derm: None - Past Surgical History Past Surgical History: Yes General: Cholecystectomy, Appendectomy - Present Medications Home Medications: Ambulatory Orders Medication Instructions Recorded Confirmed Naproxen [Naprosyn] 500 mg PO BID PRN #20 tablet 03/05/18 Dexamethasone [Decadron] 4 mg PO DAILY #5 tablet 04/06/18 Lisinopril 1 tab PO DAILY 04/06/18 04/06/18 Ondansetron HCl [Zofran] 4 mg PO Q6H PRN #15 tablet 04/06/18 - Allergies Allergies/Adverse Reactions: Allergies Allergy/AdvReac Type Severity Reaction Status Date / Time No Known Drug Allergies Allergy Verified 04/06/18 20:58 - Social History Does the pt smoke?: Yes Smoking Status: Current every day smoker Does the pt drink ETOH?: Yes Does the pt have substance abuse?: No - Immunizations Immunizations are current?: Yes - POLST Patient has POLST: No PD ED PE NORMAL - Vitals Vital signs reviewed: Yes - General General: Alert and oriented X 3, Well developed/nourished - HEENT HEENT: Pharynx benign - Neck Neck: Supple, no meningeal sign, No adenopathy - Cardiac Cardiac: RRR, No murmur - Respiratory Respiratory: Clear bilaterally - Abdomen Abdomen: Soft, Non tender - Derm Derm: Normal color, Warm and dry - Extremities Extremities: No deformity, No tenderness to palpate, Normal ROM s pain, No edema, No calf tenderness / cord - Neuro Neuro: Alert and oriented X 3, No motor deficit, Normal speech Results - Vitals Vitals: Oxygen O2 Source Room air - EKG (time done) 20:40 Rate: Rate (enter#) (68) Rhythm: NSR [place]: Normal Intervals: Normal [place] QRS: Normal Ischemia: Normal ST segments. No: ST elevation c/w ischemia, ST depression - Rads (name of study) chest xray Radiology: Prelim report reviewed (no acute process), EMP read contemporaneously PD MEDICAL DECISION MAKING - ED course Complexity details: reviewed results (Normal labs, ECG and CXR. He had BP lower to 158/84 with NTG. ), considered differential, d/w patient - Sepsis Event Vital Signs: Oxygen O2 Source Room air Departure - Departure Disposition: 01 Home, Self Care Clinical Impression: Viral syndrome, Elevated blood pressure reading, Chest tightness Condition: Stable Record reviewed to determine appropriate education?: Yes Instructions: ED Chest Pain Atypical Unkn Cause, ED Viral Syndrome Follow-Up: Blair Hughes MD [Primary Care Provider] - Prescriptions: Dexamethasone [Decadron] 4 mg PO DAILY #5 tablet Ondansetron HCl [Zofran] 4 mg PO Q6H PRN #15 tablet PRN Reason: Nausea / Vomiting Comments: Your EKG, chest x-ray, blood tests are okay here. There is no sign of more serious causes for your feeling of shortness of breath or chest pressure. I think it is likely related to a viral illness since you have the aches and feverish feeling as well. I think your blood pressure was elevated more than usual in response to not feeling well. I do not think your blood pressure was the cause of your symptoms. Follow-up with your primary care tomorrow as planned however since her blood pressure has been higher despite the lisinopril and they will presumably want to change to a different medicine. For the current illness, try ondansetron if needed for nausea and Decadron anti- inflammatory daily for several days.
[2018-04-06] MEDS ORDERED: ACETAMINOPHEN 325 MG TABLET PO STA (21:06)
[2018-04-06] MEDS ORDERED: NITROGLYCERIN SL 0.4 MG TABLET SL STA (21:06)
[2018-04-06 21:28] LABS: BASOPHILS % (AUTO) 0.8 %; EOSINOPHILS # (AUTO) 0.1 10^3/uL (0.0-0.7); EOSINOPHILS % (AUTO) 2.7 %; HGB - HEMOGLOBIN 13.9 g/dL (14.0-18.0); LYMPHOCYTES # (AUTO) 2.1 10^3/uL (1.5-3.5); LYMPHOCYTES % (AUTO) 40.7 %; MEAN CORPUSCULAR HEMOGLOBIN 29.1 pg (27.0-31.0); MEAN CORPUSCULAR HGB CONC 34.2 g/dL (32.0-36.0); MEAN CORPUSCULAR VOLUME 85.1 fL (80.0-94.0); MEAN PLATELET VOLUME 8.6 fL (7.4-11.4); MONOCYTES # (AUTO) 0.4 10^3/uL (0.0-1.0); MONOCYTES % (AUTO) 7.6 %; NEUTROPHILS # (AUTO) 2.5 10^3/uL (1.5-6.6); NEUTROPHILS % (AUTO) 48.2 %; PLT - PLATELET COUNT 210 10^3/uL (130-450); RED BLOOD COUNT 4.76 10^6/uL (4.70-6.10); RED CELL DISTRIBUTION WIDTH 14.1 % (12.0-15.0); WHITE BLOOD COUNT 5.1 x10^3/uL (4.8-10.8)
[2018-04-06 21:43] LABS: ALBUMIN 3.9 g/dL (3.2-5.5); ALBUMIN/GLOBULIN RATIO 1.1 (1.0-2.2); BILIRUBIN,TOTAL 0.7 mg/dL (0.2-1.0); CALCIUM 8.6 mg/dL (8.5-10.3); CREATININE 0.9 mg/dL (0.6-1.2); TOTAL PROTEIN 7.4 g/dL (6.7-8.2)
--- NOTE | 2018-04-06 21:53 | XRAY Report ---
Reason: chest pain left sided Procedure Date: 04/06/2018 Accession Number: [id number] / [id number] Procedure: XR - Chest 2 View X-Ray CPT Code: 33819 FULL RESULT: EXAM: CHEST RADIOGRAPHY EXAM DATE: 04/06/2018 09:17 PM. CLINICAL HISTORY: Chest pain left sided. COMPARISON: CHEST 2 VIEW PA/LAT 08/09/2016 6:08 PM. TECHNIQUE: 2 views. FINDINGS: Lungs/Pleura: No focal opacities evident. No pleural effusion. No pneumothorax. Normal volumes. Mediastinum: Heart and mediastinal contours are unremarkable. Other: None. IMPRESSION: Normal 2-view chest radiography. RADIA
[2018-04-06] MEDS ORDERED: KETOROLAC 15 MG/ML VIAL IVP STA (22:39)
[2018-04-06] MEDS ORDERED: DEXAMETHASONE 10 MG/ML VIAL IVP STA (22:39)
[2018-04-06 23:20] VITALS: BP 163/94
== END 2018-04-06 23:23 | disposition home or self-care (01) ==
LOC: EDUNIT# → SUPCPDRO 20:40 → ED 20:40
DX: B34.9 Viral infection, unspecified (principal); I10 Essential (primary) hypertension; R07.89 Other chest pain; F17.200 Nicotine dependence, unspecified, uncomplicated
CPT/HCPCS: 36415; 71046; 80053; 80320; 83690; 84484; 85025; 87275; 87276; 93005; 96374; 96375; 99283; 99284; A9270; 83880

== ENCOUNTER 2018-05-31 00:03 | Outpatient (CLI) | payer MEDICAID | END 2018-05-31 00:04 | disposition critical access hospital (66) | LOC: EMS 00:03 | PROVIDERS: ATTEND Surgery | DX: R10.10 Upper abdominal pain, unspecified (principal); R07.9 Chest pain, unspecified; R11.2 Nausea with vomiting, unspecified; R50.9 Fever, unspecified | CPT/HCPCS: A0425; A0429; A0999 ==

== ENCOUNTER 2018-05-31 00:19 | Inpatient (IN) | payer MEDICAID ==
--- NOTE | 2018-05-31 01:14 | ED Physician Documentation ---
PD HPI NVD - Stated complaint Stated Complaint: ABD PAIN - Chief complaint Chief Complaint: Abd Pain - History obtained from History obtained from: Patient - History of Present Illness Timing - onset: How many days ago (2-3) Timing - duration: Days (Patient states he has had a few days of left-sided abdominal pain which became worse today associated with some fevers. He has had diarrhea as well. He denies any melena or kristian blood in the stool. He has been nauseous with an episode of vomiting but not consistent vomiting. He feels general malaise. He states it feels similar but worse than other episodes of diverticulitis.) Timing - details: Gradual onset, Still present Associated symptoms: Fever (today), Abdominal pain (left sided), Loss of appetite. No: Near syncope / syncope Contributing factors: Alcohol use. No: Sick contact, Bad food, Recent antibiotics, Anticoagulated Similar symptoms before: Diagnosis (diverticulitis) Recently seen: Not recently seen Review of Systems Constitutional: reports: Fever (today), Myalgias Nose: denies: Rhinorrhea / runny nose, Congestion Throat: denies: Sore throat Respiratory: denies: Cough GI: reports: Abdominal Pain, Nausea, Vomiting (mild), Diarrhea. denies: Constipation, Bloody / black stool : denies: Dysuria, Frequency Skin: denies: Rash Neurologic: reports: Generalized weakness, Near syncope. denies: Syncope, Altered mental status, Headache Endocrine: denies: Easy bruising / bleeding Immunocompromised: denies: Immunocompromised PD PAST MEDICAL HISTORY - Past Medical History Cardiovascular: Hypertension Respiratory: None Endocrine/Autoimmune: None GI: Pancreatitis, Diverticulitis, Cholelithiasis : None HEENT: None Psych: None Musculoskeletal: None Derm: None - Past Surgical History Past Surgical History: Yes General: Cholecystectomy, Appendectomy - Present Medications Home Medications: Ambulatory Orders Medication Instructions Recorded Confirmed Naproxen [Naprosyn] 500 mg PO BID PRN #20 tablet 03/05/18 Dexamethasone [Decadron] 4 mg PO DAILY #5 tablet 04/06/18 Lisinopril 1 tab PO DAILY 04/06/18 04/06/18 Ondansetron HCl [Zofran] 4 mg PO Q6H PRN #15 tablet 04/06/18 - Allergies Allergies/Adverse Reactions: Allergies Allergy/AdvReac Type Severity Reaction Status Date / Time No Known Drug Allergies Allergy Unverified 05/31/18 00:27 - Living Situation Living Situation: reports: With family Living Arrangement: reports: At home - Social History Does the pt smoke?: Yes Smoking Status: Current every day smoker Does the pt drink ETOH?: Yes Does the pt have substance abuse?: No - Immunizations Immunizations are current?: Yes - POLST Patient has POLST: No PD ED PE NORMAL - Vitals Vital signs reviewed: Yes - General General: Alert and oriented X 3, Well developed/nourished, Other (He appears uncomfortable, knees drawn up. Somewhat somnolent. ) - HEENT HEENT: Pharynx benign. No: Moist mucous membranes - Neck Neck: Supple, no meningeal sign, No adenopathy - Cardiac Cardiac: No murmur. No: RRR (tachycardic but regular) - Respiratory Respiratory: Clear bilaterally - Abdomen Abdomen: Non distended, No organomegaly, Other (tender left abd mostly, with guarding on palpation. No general rebound. Does have percussion tenderness left side. Not tender RUQ in particular. ). No: Normal bowel sounds (diminished) - Male Male : Deferred - Rectal Rectal: Deferred, Other (he had large malodorous diarrheal stool soon after arrival to the ER. Guiac negative. ) - Back Back: No CVA TTP - Derm Derm: No: Normal color (mildly pale) - Extremities Extremities: No tenderness to palpate, Normal ROM s pain - Neuro Neuro: Alert and oriented X 3, No motor deficit, Normal speech Eye Opening: To Voice Motor: Obeys Commands Verbal: Oriented GCS Score: 14 Results - Vitals Vitals: Vital Signs - 24 hr 05/31/18 05/31/18 00:27 03:33 Temperature 38.4 C H 37.7 C H Heart Rate 130 H 124 H Respiratory 18 12 Rate Blood Pressure 102/74 116/86 H O2 Saturation 98 99 Oxygen O2 Source Room air - Labs Labs: Laboratory Tests 05/31/18 05/31/18 05/31/18 01:42 01:42 01:42 WBC 1.3 L* RBC 5.21 Hgb 14.9 Hct 45.2 MCV 86.9 MCH 28.5 MCHC 32.8 RDW 13.9 Plt Count 132 MPV 7.2 L Neut # (Auto) 1.0 L Lymph # (Auto) 0.3 L [place] # (Auto) 0.0 Eos # (Auto) 0.0 Baso # (Auto) 0.0 Absolute Nucleated RBC 0.01 Nucleated RBC % 0.7 Manual Slide Review Indicated Platelet Estimate NORMAL (130-450,000) Platelet Morphology NORMAL APPEARANCE RBC Morph Micro Appear NORMAL APPEARANCE Sodium 140 Potassium 2.9 L Chloride 104 Carbon Dioxide 20 L Anion Gap 16.0 H BUN 11 Creatinine 1.3 H Estimated GFR (MDRD) 59 L Glucose 96 Lactic Acid 6.8 H* Calcium 8.8 Total Bilirubin 2.0 H AST 418 H ALT 120 H Alkaline Phosphatase 432 H Total Protein 7.2 Albumin 3.5 Globulin 3.7 Albumin/Globulin Ratio 0.9 L Lipase 33 Ethyl Alcohol 34.1 05/31/18 03:10 WBC RBC Hgb Hct MCV MCH MCHC RDW Plt Count MPV Neut # (Auto) Lymph # (Auto) Island # (Auto) Eos # (Auto) Baso # (Auto) Absolute Nucleated RBC Nucleated RBC % Manual Slide Review Platelet Estimate Platelet Morphology RBC Morph Micro Appear Sodium Potassium Chloride Carbon Dioxide Anion Gap BUN Creatinine Estimated GFR (MDRD) Glucose Lactic Acid 5.2 H* Calcium Total Bilirubin AST ALT Alkaline Phosphatase Total Protein Albumin Globulin Albumin/Globulin Ratio Lipase Ethyl Alcohol - Rads (name of study) abd CT Radiology: Prelim report reviewed (dilated small bowel with thickened wall, transitions in mid small bowel. Consider early or partial SBO. Diverticulosis, without obvious diverticultis. Prior CCY with normal duct. ), EMP read contemporaneously PD MEDICAL DECISION MAKING - ED course Complexity details: re-evaluated patient (more comfortable and lying flat. cone tender left abd. Heart rate still tachy but better. Temp decreased. BP remains normotensive. ), considered differential (Colitis, diverticulitis, and concern for abscess/perforation as main initial impressions. ), d/w patient Departure - Departure Disposition: 66 [facility] DC/Xfer Clinical Impression: Colitis, Elevated lactic acid level Abdominal pain Qualifiers: Abdominal location: left lower quadrant Qualified Code(s): R10.32 - Left lower quadrant pain Diarrhea Qualifiers: Diarrhea type: presumed infectious Qualified Code(s): R19.7 - Diarrhea, unspecified Condition: Serious Record reviewed to determine appropriate education?: Yes
[2018-05-31] MEDS ORDERED: ONDANSETRON 4 MG/2 ML VIAL IVP STA (01:22)
[2018-05-31] MEDS ORDERED: SODIUM CHLORIDE 0.9% 1,000 ML IV ONE ×3 (01:22→02:35)
[2018-05-31] MEDS ORDERED: KETOROLAC 60 MG/2 ML VIAL IVP STA (01:22)
[2018-05-31] MEDS ORDERED: MORPHINE 2 MG/ML CARPUJECT IVP STA (01:27)
[2018-05-31] MEDS ORDERED: metroNIDAZOLE 500 MG/100 ML 500 MG/100 ML BAG IV ONE (01:28)
[2018-05-31 01:52] LABS: BASOPHILS % (AUTO) 0.2 %; EOSINOPHILS % (AUTO) 0.3 %; HGB - HEMOGLOBIN 14.9 g/dL (14.0-18.0); LYMPHOCYTES # (AUTO) 0.3 10^3/uL (1.5-3.5); LYMPHOCYTES % (AUTO) 24.1 %; MEAN CORPUSCULAR HEMOGLOBIN 28.5 pg (27.0-31.0); MEAN CORPUSCULAR HGB CONC 32.8 g/dL (32.0-36.0); MEAN CORPUSCULAR VOLUME 86.9 fL (80.0-94.0); MEAN PLATELET VOLUME 7.2 fL (7.4-11.4); MONOCYTES % (AUTO) 0.3 %; NEUTROPHILS % (AUTO) 75.1 %; PLT - PLATELET COUNT 132 10^3/uL (130-450); RED BLOOD COUNT 5.21 10^6/uL (4.70-6.10); RED CELL DISTRIBUTION WIDTH 13.9 % (12.0-15.0)
[2018-05-31 01:54] LABS: WHITE BLOOD COUNT 1.3 x10^3/uL (4.8-10.8)
[2018-05-31] MEDS ORDERED: IOVERSOL 320 100 ML VIAL IVP ONE ×2 (02:04→02:45)
[2018-05-31 02:06] LABS: ALBUMIN 3.5 g/dL (3.2-5.5); ALBUMIN/GLOBULIN RATIO 0.9 (1.0-2.2); CALCIUM 8.8 mg/dL (8.5-10.3); CREATININE 1.3 mg/dL (0.6-1.2); TOTAL PROTEIN 7.2 g/dL (6.7-8.2)
[2018-05-31 02:15] LABS: PLATELET ESTIMATE, MANUAL NORMAL (130-450,000) (NORMAL); PLATELET MORPHOLOGY NORMAL APPEARANCE (NORMAL); RBC MORPHOLOGY (MULTIPLE) NORMAL APPEARANCE (NORMAL)
[2018-05-31] MEDS ORDERED: AMPICILLIN/SULBACTAM 3 GM in SODIUM CHLORIDE 0.9% MINIBAG 100 ML IV STA (02:35)
--- NOTE | 2018-05-31 03:18 | CT Report ---
Reason: left abd pain and fever Procedure Date: 05/31/2018 Accession Number: [id number] / [id number] Procedure: CT - Abdomen/Pelvis W/ CPT Code: FULL RESULT: EXAM: CT ABDOMEN AND PELVIS EXAM DATE: 05/31/2018 02:18 AM. CLINICAL HISTORY: Left abd pain and fever. COMPARISONS: ABDOMEN/PELVIS W/ 08/02/2016 10:44 PM. TECHNIQUE: Routine helical CT imaging was performed through the abdomen and pelvis. IV contrast: 90 ML OPTIRAY 320. Enteric contrast: No. Reconstructions: Coronal and sagittal. In accordance with CT protocol optimization, one or more of the following dose reduction techniques were utilized for this exam: automated exposure control, adjustment of mA and/or KV based on patient size, or use of iterative reconstructive technique. FINDINGS: Lung Bases: Unremarkable. Liver: Normal. No masses. Gallbladder/Bile Ducts: Postoperative changes of cholecystectomy. No biliary dilatation. Spleen: Normal. Pancreas: Normal. Adrenal Glands: Normal. Kidneys: Normal. No masses or hydronephrosis. Peritoneal Cavity/Bowel: There is mild small bowel dilatation proximally, new from previous. There appears to be an abrupt transition in the left upper quadrant (axial image 44). The appendix is not confidently identified, but no pericecal inflammation or abnormal fluid collection is present. Colonic diverticulosis is seen, without CT evidence of diverticulitis. Pelvic Organs: Normal. The bladder and visualized pelvic organs are within normal limits. Vasculature: No aneurysms or other significant abnormality. Bones: No significant abnormality. Other: Small periumbilical hernia, containing fat. IMPRESSION: Mildly dilated proximal small bowel loops, with an abrupt transition in the left upper quadrant, suggestive of early or partial small bowel obstruction. No evidence of diverticulitis. RADIA
[2018-05-31] MEDS ORDERED: PROCHLORPERAZINE 10 MG/2 ML VIAL IVP PRN (04:09)
[2018-05-31 04:27] LABS: INR 1.1 (0.8-1.2); PT - PROTHROMBIN TIME 12.3 secs (9.9-12.6)
[2018-05-31] MEDS ORDERED: LACTATED RINGERS 1,000 ML IV ONE (04:55)
--- NOTE | 2018-05-31 05:09 | XRAY Report ---
Reason: sepsis Procedure Date: 05/31/2018 Accession Number: [id number] / [id number] Procedure: XR - Chest 1 View X-Ray CPT Code: 55739 FULL RESULT: EXAM: CHEST RADIOGRAPHY EXAM DATE: 05/31/2018 04:44 AM. CLINICAL HISTORY: Sepsis. Abdominal pain. COMPARISON: CHEST 2 VIEW 04/06/2018 9:35 PM. TECHNIQUE: 1 view. FINDINGS: Lungs/Pleura: No alveolar consolidation or pleural effusion seen. No pneumothorax. Mediastinum: Within exam limitations, the cardiomediastinal contour is normal. Other: None. IMPRESSION: 1. No acute abnormality seen in the chest. RADIA
[2018-05-31] MEDS: ONDANSETRON 4 MG/2 ML VIAL IVP PRN (05:15)
[2018-05-31] MEDS: POTASSIUM CHLOR 10 MEQ/100 ML 10 MEQ/100 ML BAG IV SCH ×6 (05:15→14:54)
[2018-05-31 05:59] LABS: ACETAMINOPHEN < 10 ug/mL (10-30); CK- CREATINE KINASE 58 IU/L (22-269); MAGNESIUM 1.1 mg/dL (1.7-2.8); SALICYLATE < 6.0 mg/dL
[2018-05-31 06:05] LABS: PHOSPHORUS < 1.0 mg/dL (2.5-4.6)
--- NOTE | 2018-05-31 06:23 | HISTORY & PHYSICAL EXAMINATION ---
DATE OF SERVICE: 05/31/2018 Physician: Josselyn Freeman MD CHIEF COMPLAINT: Abdominal pain. HISTORY OF PRESENT ILLNESS: The patient is a 47-year-old male with past medical history of hypertension, pancreatitis, and cholecystectomy. The patient had frequent ER visits in the past for different pain complaints; however, he has not required hospital admission. He does have history of drug use; however, denies recent use. He developed abdominal pain on the right side with nausea and vomiting about 3 days ago. He reported no sick contacts. About a day ago, he started to have diarrhea, abdominal pain became unbearable. He also had high fever and developed headache. Did not notice change with his urine output, did not notice blood in his stool, did not have similar symptoms in the past. Stated that he used methamphetamine about a year ago last. When I examined him, he had some punctate carrera on his arms and hands. He denied skin rash; however, on physical exam, he had some erythematous areas on his skin. Upon presentation to the ER, patient showed septic physiology, and he appeared acutely ill. Notably, he has hypertension history and, on admission, his blood pressure was borderline low 100/74, perhaps relative hypotension. His heart rate was around 130, temperature was 38.4, respiratory rate was 18, oxygen saturation 98% on room air. Received 2 liters normal saline after which his heart rate decreased to 120. His blood pressure maintained around 116/86. Laboratory data showed significant and critical abnormalities. White blood cell count was 1.3. Platelet count was normal, hemoglobin was normal. Neutrophil count was low, 1, and the differential appeared abnormal. Potassium was 2.4, carbon dioxide 20, anion gap 16; lactic acid initially 6.8, subsequently was repeated, came down to 5.2. Creatinine was 1.3 with GFR of 59. Liver function tests were abnormal with AST 418, ALT 120, alkaline phosphatase 432. Lipase was normal. Ethyl alcohol level was 34.1. CT scan of the abdomen and pelvis showed mildly dilated proximal small bowel with transition point in the left upper quadrant suggestive of early partial small bowel obstruction. There was no other abnormality in the abdomen. It should be noted, however, that the patient kept having diarrhea during the ER stay, therefore small-bowel obstruction is not likely on the clinical grounds. PAST MEDICAL HISTORY 1. Frequent ER visits with different pain complaints. 2. History of pancreatitis. Likely alcohol use. 3. Hypertension. 4. Cholelithiasis post-cholecystectomy. OUTPATIENT MEDICATIONS: The patient told me he takes blood pressure medications. No other medications. SOCIAL HISTORY: The patient has history of drug abuse, states that he used methamphetamine about a year ago last. He smokes cigarettes and drinks alcohol. He did not further specify. FAMILY HISTORY: Negative for bowel disease. REVIEW OF SYSTEMS: Please see pertinent positives listed above at history of present illness. Notably, the patient appeared acutely ill, and he was a poor historian. Other than the symptoms listed at history of present illness, he did not report complaint. I attempted 12 point review. PHYSICAL EXAMINATION VITAL SIGNS: Please see listed above at history of present illness. GENERAL: The patient is a well-developed, acutely ill-appearing male who was curled up, looked uncomfortable, complained of abdominal pain. Oral mucosa dry, cracked lips, no ulcers, no thrush. CARDIOVASCULAR: S1, S2. Regular tachycardia. No obvious murmur. RESPIRATORY: No wheezes. No crackles. Slightly increased work of breathing. SKIN: With erythematous areas in the arms and on the flank, appeared like flushed skin. There was no discrete rash. LYMPHS: Minimal pitting pedal edema. ABDOMEN: Distended, obese, not much bowel tone. No rebound tenderness, diffuse tenderness both in the right and left upper quadrants. NEUROLOGIC: Lethargic but arousable. Nonfocal. PSYCHIATRIC: Cooperative. ASSESSMENT AND PLAN: The patient is a 47-year-old male who is presenting with septic physiology, leukopenia, neutropenia, fever, appears acutely ill and encephalopathic. Laboratories show lactic acidosis, abnormal liver function tests. In addition, there is alcohol intoxication. There are electrolyte abnormalities including hypokalemia and anion gap metabolic acidosis secondary to lactic acidosis. The overall presentation suggests a viral illness, something that could cause hepatitis or alcoholic hepatitis. In addition, enteritis is a possibility as well. The patient does not clinically have small- bowel obstruction, as he is passing bowel movements and has in fact diarrhea. The CT scan of the abdomen showed possible early bowel obstruction and small bowel inflammation/dilatation but no other abnormality. The patient could have viral or alcoholic hepatitis; viral could be hepatitis virus, cytomegalovirus, Loretta-Nunez, or other. He could also have a bacterial illness and with his past drug use, especially if he would still be using, he could have bacteremia. I am not sure how good historian he is reporting drug use a year ago. Additional issue is that he could have HIV, especially with history of drug use, now presenting with hepatitis and leukopenia, which could be a viral conversion disorder. PLAN/ORDERS: The patient is acutely ill, showing septic physiology and severe lactic acidosis and he would have qualified to be admitted to higher level of care; however, at this point, we do not have an ICU bed. It is reassuring that he improved during the ER stay, his heart rate decreased and his blood pressure maintained. At this point; therefore, he does not need vasopressor or ICU care, and we will closely monitor him on the medical floor. If he gets worse, then we will have low threshold to upgrade him to critical care during the daytime when ICU bed will likely be available. In the meantime, we will continue aggressive IV hydration, close monitoring. We will repeat lactic acid and order further laboratories. I will order hepatitis panel, viral studies including HIV. Will also add stool studies, C difficile, MRSA screen, and stool cultures. Drug screen is also ordered. For now, we will empirically cover with Unasyn pending blood cultures. If no bacterial infection identified, then in a couple of days I would likely discontinue the Unasyn considering that this is most likely a viral illness. We will also add influenza. Regarding alcohol use, patient will need to be monitored for signs of withdrawal. If he would have withdrawal issue, then we would start CIWA scoring. For now, I will not order Ativan, as he still has high blood alcohol level. Regarding electrolyte abnormalities, we will replace potassium, check magnesium and phosphorus. Concerning hepatitis, I also added Tylenol and salicylate level and coagulation studies. Notably, the patient was a poor historian, and not much information could be obtained from him. In addition, considering leukopenia, I will add peripheral smear as well. Deep venous thrombosis prophylaxis. Further plan will depend on the clinical course. ATTESTATION: I certify that the reasonable expectation for this patient is to remain hospitalized for 2 days/48 hours; however, to get discharged or transferred to another facility within 96 hours. Patient is acutely ill, high risk, and he meets inpatient criteria. Time spent in the care of this patient was 60 minutes. TD: 05/31/2018 05:27 MICAELA
[2018-05-31] MEDS: SODIUM CHLORIDE 0.9% 1,000 ML IV SCH ×2 (06:25→22:05)
[2018-05-31] MEDS: AMPICILLIN/SULBACTAM 1.5 GM in SODIUM CHLORIDE 0.9% MINIBAG 100 ML IV SCH ×4 (06:26→23:39)
[2018-05-31] MEDS: PANTOPRAZOLE 40 MG VIAL IVP SCH (06:26)
[2018-05-31] MEDS: SODIUM CHLORIDE FLUSH 0.9% 10 ML SYRINGE IVP SCH ×3 (06:27→22:37)
[2018-05-31] MEDS ORDERED: SODIUM CHLORIDE FLUSH 0.9% 10 ML SYRINGE ONE (06:50)
[2018-05-31 10:21] LABS: MUDS CUTOFF CONCENTRATIONS CUTOFF CONC BELOW:
[2018-05-31] MEDS: MORPHINE 2 MG/ML CARPUJECT IVP PRN ×3 (10:28→23:33)
[2018-05-31 10:35] LABS: AMPHETAMINE SCREEN,URINE POSITIVE (NEGATIVE); METHAMPHETAMINES SCREEN, URINE POSITIVE (NEGATIVE); OPIATE SCREEN, URINE POSITIVE (NEGATIVE)
[2018-05-31 10:36] LABS: BENZODIAZEPINES SCREEN, URINE NEGATIVE (NEGATIVE); COCAINE SCREEN URINE NEGATIVE (NEGATIVE); METHADONE SCREEN, URINE NEGATIVE (NEGATIVE); OXYCODONE SCREEN, URINE NEGATIVE (NEGATIVE); PROPOXYPHENE SCREEN, URINE NEGATIVE (NEGATIVE); TRICYCLIC ANTIDEPRESSANT,URINE NEGATIVE (NEGATIVE)
[2018-05-31] MEDS ORDERED: MULTIVITAMIN 10 ML, THIAMINE INJ 100 MG, FOLIC ACID INJ 1 MG in SODIUM CHLORIDE 0.9% 1,... IV SCH (13:00)
[2018-05-31] MEDS ORDERED: POTASSIUM PHOSPHATE 21 MMOL in SODIUM CHLORIDE 0.9% 250 ML IV ONE (13:03)
[2018-05-31] MEDS ORDERED: MAGNESIUM SULFATE 2 GRAM 2 GM/50 ML BAG IV ONE ×2 (13:03→14:05)
[2018-05-31] MEDS: LORazepam 2 MG/ML VIAL IVP PRN ×10 (13:08→22:36)
--- NOTE | 2018-05-31 13:23 | PROVIDER PROGRESS NOTE ---
Hospitalist Cross-cover Note - Cross-Cover Note Cross-Cover Note: CRITICAL CARE NOTE The patient started to exhibit signs of alcohol withdrawal: was agitated, delirious, stood up and urinated by waving his penis around. He was give Compazine for N/V and Morphine for c/o abdominal pain. BP stable, HR 110 Exam remarkable for sedated individual, comfortable respirations. Diagnoses: Severe sepsis with Lactic Acid levels very elevated, febrile, tachy, abnormal WBC (possibly unable to mount an inflammatory response) Metabolic encephalopathy, multi-factorial Alcohol withdrawal Hepatitis, alcoholic vs viral Leukopenia Abdominal pain Diarrhea Hypokalemia Hypophosphatemia Hypomagnesemia Plan: Patient is in critical condition Transfer to ICU VS q1h CIWA protocol and Ativan dosing per CIWA protocol iv antibiotics iv fluids replace K, Phos, Mag ICU electrolyte protocol after that Banana bag w/ Thiamine daily CMP and CBC D5 in his iv for calories Dietitian consult Anselmo for accurate I's and O's (Critical Care time spent: 30 min)
[2018-05-31] MEDS ORDERED: D5NS W/20 MEQ KCL 1,000 ML IV SCH (14:00)
[2018-05-31] MEDS ORDERED: POTASSIUM CHLOR 10 MEQ/100 ML 10 MEQ/100 ML BAG IV ONE (14:56)
[2018-05-31] MEDS ORDERED: LORazepam 100MG/100ML 100 ML IV SCH (16:00)
[2018-05-31] MEDS ORDERED: HALOPERIDOL 5 MG/ML VIAL IM ONE (16:40)
[2018-05-31] MEDS ORDERED: HALOPERIDOL 5 MG/ML VIAL ONE (16:45)
[2018-05-31] MEDS: SODIUM CHLORIDE FLUSH 0.9% 10 ML SYRINGE IVP PRN ×2 (18:40→23:34)
[2018-05-31] MEDS: DEXMEDETOMIDINE 400 MCG/100 ML 100 ML IV PRN (20:24)
[2018-05-31] MEDS ORDERED: ACETAMINOPHEN 650 MG SUPP PR SCH (21:00)
[2018-06-01] MEDS: LORazepam 2 MG/ML VIAL IVP PRN ×2 (00:27→01:28)
[2018-06-01] MEDS: SODIUM CHLORIDE FLUSH 0.9% 10 ML SYRINGE IVP PRN ×2 (00:28→06:30)
[2018-06-01] MEDS: DEXMEDETOMIDINE 400 MCG/100 ML 100 ML IV PRN ×3 (01:27→11:08)
[2018-06-01] MEDS: AMPICILLIN/SULBACTAM 1.5 GM in SODIUM CHLORIDE 0.9% MINIBAG 100 ML IV SCH ×4 (05:31→23:40)
[2018-06-01 06:11] LABS: BASOPHILS % (AUTO) 0.3 %; EOSINOPHILS % (AUTO) 0.1 %; HGB - HEMOGLOBIN 12.8 g/dL (14.0-18.0); LYMPHOCYTES # (AUTO) 0.6 10^3/uL (1.5-3.5); MEAN CORPUSCULAR HEMOGLOBIN 29.3 pg (27.0-31.0); MEAN CORPUSCULAR HGB CONC 33.4 g/dL (32.0-36.0); MEAN CORPUSCULAR VOLUME 87.7 fL (80.0-94.0); MEAN PLATELET VOLUME 9.2 fL (7.4-11.4); MONOCYTES # (AUTO) 0.4 10^3/uL (0.0-1.0); MONOCYTES % (AUTO) 4.2 %; NEUTROPHILS # (AUTO) 9.1 10^3/uL (1.5-6.6); NEUTROPHILS % (AUTO) 89.4 %; PLT - PLATELET COUNT 71 10^3/uL (130-450); RED BLOOD COUNT 4.36 10^6/uL (4.70-6.10); RED CELL DISTRIBUTION WIDTH 14.7 % (12.0-15.0); WHITE BLOOD COUNT 10.2 x10^3/uL (4.8-10.8)
[2018-06-01] MEDS: PANTOPRAZOLE 40 MG VIAL IVP SCH (06:30)
[2018-06-01 06:34] LABS: ALBUMIN 2.5 g/dL (3.2-5.5); BILIRUBIN,TOTAL 4.6 mg/dL (0.2-1.0); CALCIUM 7.1 mg/dL (8.5-10.3); CREATININE 1.8 mg/dL (0.6-1.2); MAGNESIUM 2.3 mg/dL (1.7-2.8); PHOSPHORUS 4.1 mg/dL (2.5-4.6); TOTAL PROTEIN 5.1 g/dL (6.7-8.2)
[2018-06-01] MEDS ORDERED: LACTATED RINGERS 500 ML IV ONE (06:58)
[2018-06-01 07:00] LABS: VBG PH 7.462 (7.31-7.41)
[2018-06-01] MEDS: SODIUM CHLORIDE 0.9% 1,000 ML IV SCH ×2 (07:21→20:15)
[2018-06-01] MEDS ORDERED: CALCIUM GLUCONATE 2,000 MG in SODIUM CHLORIDE 0.9% 100ML 100 ML IV ONE (08:00)
--- NOTE | 2018-06-01 08:03 | PROVIDER PROGRESS NOTE ---
Subjective - Prog Note Date Prog Note Date: 06/01/18 Prog Note Time: 08:02 - Subjective Subjective: He presented to the emergency room in the network and [facility] support specialist May 31. He has a history of alcohol abuse, pancreatitis, hypertension and a cholecystectomy. He had right-sided abdominal pain with vomiting for 3 days, day before admission diarrhea. High fever. Headache. He presented with low blood pressure at 100/74 where he is usually hypertensive. Heart rate was 130, temperature 38 4, O2 sat 98% on room air. White cell count was 1.2, platelets normal, neutrophil count low at 1, lactic acid 6.8, LFTs abnormal and high, and he was acutely intoxicated with an alcohol level of 34.1. CT scan of abdomen showed mildly dilated proximal small bowel that was possibly early partial small bowel obstruction. No other abnormality. He continued to have diarrhea in the ER. Chest x-ray is normal, does not have pneumonia. Lung bases and CT are normal. Urinalysis is normal. He was admitted to the floor with a presumed diagnosis of sepsis (Source unk nown), alcoholic hepatitis, and acute alcohol intoxication. He decompensated with regards to alcohol withdrawal and is now transferred to the ICU. On a Precedex drip. Objective - Vital Signs/Intake & Output Vital Signs: Vital Signs Pulse Resp BP Pulse Ox 06/01/18 07:00 65 28 H 99/59 L 96 06/01/18 06:00 67 28 H 97/53 L 96 06/01/18 05:00 97 35 H 98/52 L 96 Intake & Output: Intake & Output 05/29/18 05/30/18 05/31/18 06/01/18 23:59 23:59 23:59 23:59 Intake Total 6332.545 1186.202 Output Total 1825 540 Balance 4507.545 646.202 - Objective General Appearance: positive: Lethargic Eyes Bilateral: positive: PERRL Eyes: OU Scleral icterus ENT: positive: Dry mucous membranes Neck: positive: No JVD. negative: Stiff neck, Carotid bruit Respiratory: positive: Chest non-tender, Breath sounds nml (coarse upper airway sounds). negative: Wheezes, Rales, Rhonchi Cardiovascular: positive: Regular rate & rhythm. negative: JVD present, Gallop/S4 Abdomen: positive: Nml bowel sounds, No distention. negative: Guarding, Rebound Skin: positive: Warm, Diaphoresis Extremities: positive: Full ROM Neurologic/Psychiatric: positive: Disoriented to person, Disoriented to place, Disoriented to time, Other (he is confused, pulling at restraints, not able to be directed. On precedex drip) - Lab Results Fish Bones: 06/02/18 04:30 06/02/18 04:30 Other Labs: Lab Results x24hrs 06/01/18 06/01/18 06/01/18 Range/Units 06:54 05:58 05:58 WBC 10.2 (4.8-10.8) x10^3/uL RBC 4.36 L (4.70-6.10) 10^6/uL Hgb 12.8 L (14.0-18.0) g/dL Hct 38.2 L (42.0-52.0) % MCV 87.7 (80.0-94.0) fL MCH 29.3 (27.0-31.0) pg MCHC 33.4 (32.0-36.0) g/dL RDW 14.7 (12.0-15.0) % Plt Count 71 L (130-450) 10^3/uL MPV 9.2 (7.4-11.4) fL Neut # (Auto) 9.1 H (1.5-6.6) 10^3/uL Lymph # (Auto) 0.6 L (1.5-3.5) 10^3/uL [place] # (Auto) 0.4 (0.0-1.0) 10^3/uL Eos # (Auto) 0.0 (0.0-0.7) 10^3/uL Baso # (Auto) 0.0 (0.0-0.1) 10^3/uL Absolute Nucleated RBC 0.00 x10^3/uL Nucleated RBC % 0.0 /100WBC VBG pH 7.462 H (7.31-7.41) Ionized Calcium 0.95 L (1.15-1.33) mmol/L Sodium 136 (135-145) mmol/L Potassium 4.4 (3.5-5.0) mmol/L Chloride 108 (101-111) mmol/L Carbon Dioxide 20 L (21-32) mmol/L Anion Gap 8.0 (6-13) BUN 27 H (6-20) mg/dL Creatinine 1.8 H (0.6-1.2) mg/dL Estimated GFR (MDRD) 41 L (>89) Glucose 108 H (70-100) mg/dL Calcium 7.1 L (8.5-10.3) mg/dL Phosphorus 4.1 (2.5-4.6) mg/dL Magnesium 2.3 (1.7-2.8) mg/dL Total Bilirubin 4.6 H (0.2-1.0) mg/dL AST 339 H (10-42) IU/L ALT 242 H (10-60) IU/L Alkaline Phosphatase 282 H (42-121) IU/L Total Protein 5.1 L (6.7-8.2) g/dL Albumin 2.5 L (3.2-5.5) g/dL Globulin 2.6 (2.1-4.2) g/dL Albumin/Globulin Ratio 1.0 (1.0-2.2) Urine Opiates Screen (NEGATIVE) Ur Oxycodone Screen (NEGATIVE) Urine Methadone Screen (NEGATIVE) Ur Propoxyphene Screen (NEGATIVE) Ur Barbiturates Screen (NEGATIVE) Ur Tricyclics Screen (NEGATIVE) Ur Phencyclidine Scrn (NEGATIVE) Ur Amphetamine Screen (NEGATIVE) U Methamphetamines Scrn (NEGATIVE) U Benzodiazepines Scrn (NEGATIVE) Urine Cocaine Screen (NEGATIVE) U Cannabinoids Screen (NEGATIVE) Influenza A (Rapid) (Negative) Influenza B (Rapid) (Negative) 05/31/18 05/31/18 Range/Units 10:17 08:50 WBC (4.8-10.8) x10^3/uL RBC (4.70-6.10) 10^6/uL Hgb (14.0-18.0) g/dL Hct (42.0-52.0) % MCV (80.0-94.0) fL MCH (27.0-31.0) pg MCHC (32.0-36.0) g/dL RDW (12.0-15.0) % Plt Count (130-450) 10^3/uL MPV (7.4-11.4) fL Neut # (Auto) (1.5-6.6) 10^3/uL Lymph # (Auto) (1.5-3.5) 10^3/uL [place] # (Auto) (0.0-1.0) 10^3/uL Eos # (Auto) (0.0-0.7) 10^3/uL Baso # (Auto) (0.0-0.1) 10^3/uL Absolute Nucleated RBC x10^3/uL Nucleated RBC % /100WBC VBG pH (7.31-7.41) Ionized Calcium (1.15-1.33) mmol/L Sodium (135-145) mmol/L Potassium (3.5-5.0) mmol/L Chloride (101-111) mmol/L Carbon Dioxide (21-32) mmol/L Anion Gap (6-13) BUN (6-20) mg/dL Creatinine (0.6-1.2) mg/dL Estimated GFR (MDRD) (>89) Glucose (70-100) mg/dL Calcium (8.5-10.3) mg/dL Phosphorus (2.5-4.6) mg/dL Magnesium (1.7-2.8) mg/dL Total Bilirubin (0.2-1.0) mg/dL AST (10-42) IU/L ALT (10-60) IU/L Alkaline Phosphatase (42-121) IU/L Total Protein (6.7-8.2) g/dL Albumin (3.2-5.5) g/dL Globulin (2.1-4.2) g/dL Albumin/Globulin Ratio (1.0-2.2) Urine Opiates Screen POSITIVE H (NEGATIVE) Ur Oxycodone Screen NEGATIVE (NEGATIVE) Urine Methadone Screen NEGATIVE (NEGATIVE) Ur Propoxyphene Screen NEGATIVE (NEGATIVE) Ur Barbiturates Screen NEGATIVE (NEGATIVE) Ur Tricyclics Screen NEGATIVE (NEGATIVE) Ur Phencyclidine Scrn NEGATIVE (NEGATIVE) Ur Amphetamine Screen POSITIVE H (NEGATIVE) U Methamphetamines Scrn POSITIVE H (NEGATIVE) U Benzodiazepines Scrn NEGATIVE (NEGATIVE) Urine Cocaine Screen NEGATIVE (NEGATIVE) U Cannabinoids Screen NEGATIVE (NEGATIVE) Influenza A (Rapid) Negative (Negative) Influenza B (Rapid) Negative (Negative) Assessment/Plan - Problem List (1) Elevated lactic acid level Impression: Presents as right-sided abdominal pain in the face of someone who has known alcohol abuse, currently intoxicated, and has history of pancreatitis. In addition to the elevated lactic acid level he has an elevated white cell count, fever. No specific source of infection at this time. CT the abdomen did not indicate source of infection. Chest x-ray was negative. Urinalysis is negative. Urine tox screen showed methamphetamines, opiates. Overall, the impression now is that most likely has lactic acidosis from alcohol intoxication and alcohol withdrawal. I do not think there is a source of infection. He is on abx and I will stop after 5 days. (2) Liver failure, acute Impression: Because of his history of alcohol abuse, probable cirrhosis, and acute alcohol intoxication, I feel that he went into liver failure. Initial bilirubin was 2, peaked at 4.6, today lower. Liver enzymes are also coming down. This is without the use of steroids. I will call his POA which is most likely his mom, Ms. Sumner lives in [place], [place]. Her phone number is [phone]. I have left a message for her. She is his legal power of environmental attorney since his current fiance does not have power of environmental attorney. With this visit he does have a hepatitis C antibody that is positive. Hepatitis C RNA quantitative and genotype is pending. HIV has been negative and hepatitis B and a are negative. The abdomen pelvis CT showed a normal liver without masses. He last had an abdominal ultrasound July 25, 2016 where he had a fatty liver no masses. No evidence of varices or portal hypertension. Qualifiers: Hepatic coma status: without hepatic coma Qualified Code(s): K72.00 - Acute and subacute hepatic failure without coma (3) acute alcohol intoxication, acute metamphetamine use on tox screen Some of his labs could be from this (lactic acid elevation) will continue to monitory. (4) neutropenia initially attributed to infection/sepsis. But this could also be from alcohol abuse. darlin today to normal from yesterday.
[2018-06-01] MEDS: SODIUM CHLORIDE FLUSH 0.9% 10 ML SYRINGE IVP SCH ×4 (08:21→23:53)
[2018-06-01 12:11] LABS: HEPATITIS A IGM NON-REACTIVE (NON-REACTIVE); HEPATITIS B CORE ANTIBODY IGM NON-REACTIVE (NON-REACTIVE); HEPATITIS B SURFACE ANTIGEN NON-REACTIVE (NON-REACTIVE); HEPATITIS C ANTIBODY REACTIVE (NON-REACTIVE)
[2018-06-01 14:53] LABS: HIV AG/AB 4TH GEN NON-REACTIVE (NON-REACTIVE)
[2018-06-01 15:56] LABS: VBG PH 7.363 (7.31-7.41)
[2018-06-01] MEDS ORDERED: CALCIUM GLUCONATE 1,000 MG in SODIUM CHLORIDE 0.9% 50 ML IV ONE (16:20)
[2018-06-01] MEDS: MULTIVITAMIN 10 ML, THIAMINE INJ 100 MG, FOLIC ACID INJ 1 MG in SODIUM CHLORIDE 0.9% 1,... IV SCH (21:37)
[2018-06-01] MEDS: MORPHINE 2 MG/ML CARPUJECT IVP PRN (23:52)
[2018-06-02] MEDS: DEXMEDETOMIDINE 400 MCG/100 ML 100 ML IV PRN ×3 (01:56→19:56)
[2018-06-02] MEDS: MORPHINE 2 MG/ML CARPUJECT IVP PRN ×2 (03:05→05:56)
[2018-06-02] MEDS: SODIUM CHLORIDE FLUSH 0.9% 10 ML SYRINGE IVP PRN ×6 (03:46→20:24)
[2018-06-02 04:43] LABS: BASOPHILS # (AUTO) 0.1 10^3/uL (0.0-0.1); BASOPHILS % (AUTO) 0.6 %; EOSINOPHILS # (AUTO) 0.1 10^3/uL (0.0-0.7); EOSINOPHILS % (AUTO) 1.2 %; HGB - HEMOGLOBIN 13.5 g/dL (14.0-18.0); LYMPHOCYTES # (AUTO) 1.5 10^3/uL (1.5-3.5); LYMPHOCYTES % (AUTO) 14.9 %; MEAN CORPUSCULAR VOLUME 87.8 fL (80.0-94.0); MEAN PLATELET VOLUME 9.8 fL (7.4-11.4); MONOCYTES # (AUTO) 0.4 10^3/uL (0.0-1.0); MONOCYTES % (AUTO) 4.3 %; NEUTROPHILS # (AUTO) 8.1 10^3/uL (1.5-6.6); PLT - PLATELET COUNT 72 10^3/uL (130-450); RED BLOOD COUNT 4.66 10^6/uL (4.70-6.10); RED CELL DISTRIBUTION WIDTH 14.9 % (12.0-15.0); WHITE BLOOD COUNT 10.2 x10^3/uL (4.8-10.8)
[2018-06-02 04:54] LABS: ALBUMIN 2.7 g/dL (3.2-5.5); BILIRUBIN,TOTAL 3.5 mg/dL (0.2-1.0); CALCIUM 8.1 mg/dL (8.5-10.3); CREATININE 1.2 mg/dL (0.6-1.2); MAGNESIUM 2.3 mg/dL (1.7-2.8); PHOSPHORUS 3.8 mg/dL (2.5-4.6); TOTAL PROTEIN 5.4 g/dL (6.7-8.2)
[2018-06-02] MEDS: LORazepam 2 MG/ML VIAL IVP PRN ×14 (05:36→20:23)
[2018-06-02] MEDS: AMPICILLIN/SULBACTAM 1.5 GM in SODIUM CHLORIDE 0.9% MINIBAG 100 ML IV SCH ×3 (06:18→17:30)
[2018-06-02] MEDS: PANTOPRAZOLE 40 MG VIAL IVP SCH (06:20)
[2018-06-02] MEDS: SODIUM CHLORIDE 0.9% 1,000 ML IV SCH ×2 (08:07→18:44)
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
[2018-06-02] MEDS: SODIUM CHLORIDE FLUSH 0.9% 10 ML SYRINGE IVP SCH ×3 (13:47→19:39)
[2018-06-02 14:06] LABS: ANA SCREEN NEGATIVE (NEGATIVE)
[2018-06-02] MEDS: MULTIVITAMIN 10 ML, THIAMINE INJ 100 MG, FOLIC ACID INJ 1 MG in SODIUM CHLORIDE 0.9% 1,... IV SCH (21:50)
[2018-06-02 23:02] LABS: CMV DNA QN RT PCR <200 IU/mL; SOURCE blood
[2018-06-03] MEDS: AMPICILLIN/SULBACTAM 1.5 GM in SODIUM CHLORIDE 0.9% MINIBAG 100 ML IV SCH ×3 (00:05→11:59)
[2018-06-03] MEDS: SODIUM CHLORIDE FLUSH 0.9% 10 ML SYRINGE IVP PRN ×3 (00:08→06:28)
[2018-06-03] MEDS: DEXMEDETOMIDINE 400 MCG/100 ML 100 ML IV PRN ×2 (01:04→17:00)
[2018-06-03 05:20] LABS: MAGNESIUM 1.7 mg/dL (1.7-2.8); PHOSPHORUS 3.8 mg/dL (2.5-4.6)
[2018-06-03] MEDS: PANTOPRAZOLE 40 MG VIAL IVP SCH (06:28)
[2018-06-03] MEDS: SODIUM CHLORIDE 0.9% 1,000 ML IV SCH ×2 (06:30→18:05)
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
[2018-06-03 08:44] LABS: ALBUMIN 2.9 g/dL (3.2-5.5); CALCIUM 8.3 mg/dL (8.5-10.3); CREATININE 0.9 mg/dL (0.6-1.2); TOTAL PROTEIN 5.9 g/dL (6.7-8.2)
[2018-06-03 08:51] LABS: BASOPHILS # (AUTO) 0.1 10^3/uL (0.0-0.1); BASOPHILS % (AUTO) 0.6 %; EOSINOPHILS % (AUTO) 0.6 %; HGB - HEMOGLOBIN 13.3 g/dL (14.0-18.0); LYMPHOCYTES # (AUTO) 1.9 10^3/uL (1.5-3.5); LYMPHOCYTES % (AUTO) 23.4 %; MEAN CORPUSCULAR HGB CONC 33.8 g/dL (32.0-36.0); MEAN CORPUSCULAR VOLUME 85.9 fL (80.0-94.0); MEAN PLATELET VOLUME 10.6 fL (7.4-11.4); MONOCYTES # (AUTO) 0.3 10^3/uL (0.0-1.0); NEUTROPHILS # (AUTO) 5.9 10^3/uL (1.5-6.6); NEUTROPHILS % (AUTO) 71.4 %; PLT - PLATELET COUNT 84 10^3/uL (130-450); RED BLOOD COUNT 4.57 10^6/uL (4.70-6.10); RED CELL DISTRIBUTION WIDTH 14.6 % (12.0-15.0); WHITE BLOOD COUNT 8.3 x10^3/uL (4.8-10.8)
[2018-06-03] MEDS: SODIUM CHLORIDE FLUSH 0.9% 10 ML SYRINGE IVP SCH ×2 (09:02→17:23)
[2018-06-03] MEDS ORDERED: cloNIDine 0.1 MG PATCH TOP SCH (11:00)
[2018-06-03] MEDS: MORPHINE 2 MG/ML CARPUJECT IVP PRN ×3 (14:24→22:07)
[2018-06-03] MEDS ORDERED: POTASSIUM CHLOR 10 MEQ/100 ML 10 MEQ/100 ML BAG IV SCH (16:00)
[2018-06-03] MEDS ORDERED: POTASSIUM CHLORIDE 20 MEQ/15 ML UDC PO ONE (16:18)
[2018-06-03] MEDS: AMPICILLIN/SULBACTAM 3 GM in SODIUM CHLORIDE 0.9% MINIBAG 100 ML IV SCH (18:15)
[2018-06-04] MEDS: MULTIVITAMIN 10 ML, THIAMINE INJ 100 MG, FOLIC ACID INJ 1 MG in SODIUM CHLORIDE 0.9% 1,... IV SCH (02:16)
[2018-06-04] MEDS: AMPICILLIN/SULBACTAM 3 GM in SODIUM CHLORIDE 0.9% MINIBAG 100 ML IV SCH ×4 (02:17→18:15)
[2018-06-04] MEDS: SODIUM CHLORIDE FLUSH 0.9% 10 ML SYRINGE IVP SCH ×3 (02:17→17:08)
[2018-06-04] MEDS: MORPHINE 2 MG/ML CARPUJECT IVP PRN ×6 (04:09→19:15)
[2018-06-04 05:21] LABS: BASOPHILS % (AUTO) 0.4 %; EOSINOPHILS # (AUTO) 0.1 10^3/uL (0.0-0.7); EOSINOPHILS % (AUTO) 2.5 %; LYMPHOCYTES # (AUTO) 1.9 10^3/uL (1.5-3.5); LYMPHOCYTES % (AUTO) 38.5 %; MEAN CORPUSCULAR HEMOGLOBIN 28.6 pg (27.0-31.0); MEAN CORPUSCULAR HGB CONC 32.4 g/dL (32.0-36.0); MEAN CORPUSCULAR VOLUME 88.1 fL (80.0-94.0); MEAN PLATELET VOLUME 9.2 fL (7.4-11.4); MONOCYTES # (AUTO) 0.3 10^3/uL (0.0-1.0); MONOCYTES % (AUTO) 5.4 %; NEUTROPHILS # (AUTO) 2.7 10^3/uL (1.5-6.6); NEUTROPHILS % (AUTO) 53.2 %; PLT - PLATELET COUNT 101 10^3/uL (130-450); RED BLOOD COUNT 4.54 10^6/uL (4.70-6.10); RED CELL DISTRIBUTION WIDTH 14.8 % (12.0-15.0)
[2018-06-04 05:29] LABS: ALBUMIN 2.7 g/dL (3.2-5.5); ALBUMIN/GLOBULIN RATIO 0.9 (1.0-2.2); BILIRUBIN,TOTAL 2.6 mg/dL (0.2-1.0); CALCIUM 8.1 mg/dL (8.5-10.3); MAGNESIUM 1.5 mg/dL (1.7-2.8); PHOSPHORUS 3.5 mg/dL (2.5-4.6); TOTAL PROTEIN 5.8 g/dL (6.7-8.2)
[2018-06-04] MEDS: PANTOPRAZOLE 40 MG VIAL IVP SCH (06:30)
[2018-06-04] MEDS ORDERED: POTASSIUM CHLORIDE 20 MEQ/15 ML UDC PO ONE (07:18)
[2018-06-04] MEDS: MAGNESIUM OXIDE 400 MG TABLET PO SCH ×2 (08:33→15:08)
[2018-06-04] MEDS: METOPROLOL SUCCINATE 50 MG TABLET PO SCH (11:04)
[2018-06-04] MEDS: oxyCODONE 5 MG TABLET PO PRN ×2 (11:04→20:16)
[2018-06-04] MEDS: amLODIPine 5 MG TABLET PO SCH (11:05)
[2018-06-04] MEDS: LOSARTAN 50 MG TABLET PO SCH (12:48)
[2018-06-04 14:02] LABS: HCV RNA QNT <1.18 NOT DETECTED Log IU/mL (NOT DETECTED); HCV RNA QUANT RT PCR <15 NOT DETECTED IU/mL (NOT DETECTED)
--- NOTE | 2018-06-04 14:20 | PROVIDER PROGRESS NOTE ---
Assessment/Plan - Problem List (1) Alcohol withdrawal delirium Assessment/Plan: The patient was on ativan drip, boluses of HAldol, then several days of Precedex drip. Today is his first day of normal sensorium. He cannot remember the past 6 days. Will start OOB to chair today. Will advance diet as tolerated. (2) Liver failure, acute Assessment/Plan: There has been a slow improvement in LFTs. It was presumed to be from Hepatitis, either alcoholic Hepatitis or viral Hepatitis. Pt has some abdominal pain and requesting pain meds for this. He had imaging of the abdomen which was unremarkable. Will advance diet as tolerated. (3) Diarrhea Qualifiers: Diarrhea type: presumed infectious Qualified Code(s): R19.7 - Diarrhea, unspecified Assessment/Plan: C. diff PCR ordered. If neg, will add Imodium prn. (4) HTN (hypertension) Assessment/Plan: Will restart his home BP meds, starting out staggered. (5) Elevated lactic acid level Assessment/Plan: He presents as right-sided abdominal pain in the face of someone who has known alcohol abuse, was intoxicated, and has history of pancreatitis. In addition to the elevated lactic acid level he has an elevated white cell count, fever. No specific source of infection at this time. CT the abdomen did not indicate source of infection. Chest x-ray was negative. Urinalysis is negative. Urine tox screen showed methamphetamines, opiates. Blood cultures are negative. Most likely has lactic acidosis from alcohol intoxication and alcohol withdrawal. He doesn't have ascites to tap for SBP. Will stop antibx after today, fifth day of empiric dose. (6) Hypokalemia Assessment/Plan: Replace. Monitor daily BMP. - Current Meds Current Meds: Current Medications Generic Name Dose Route Start Last Admin Trade Name Freq PRN Reason Stop Dose Admin Amlodipine Besylate 5 mg 06/04/18 11:00 06/04/18 11:05 Norvasc PO 5 mg DAILY STANISLAV Administration Clonidine HCl 1 patch 06/03/18 11:00 06/03/18 11:12 [id number]-[id number]-2 TOP 1 patch Q7D STANISLAV Administration Dexmedetomidine/Sodium Chloride 100 mls @ 7.313 mls/hr 05/31/18 20:06 06/04/18 04:20 Precedex Premix IV Infused .[id number] PRN Titration Agitation Protocol 0.3 MCG/KG/HR Ampicillin Sodium/Sulbactam 100 mls @ 200 mls/hr 06/03/18 18:00 06/04/18 13: 15 Sodium 3 gm/ Sodium Chloride IV Infused Q6HR STANISLAV Infusion Lorazepam 2 mg 05/31/18 12:42 06/02/18 20:23 Ativan Inj (Vial) IVP 2 mg Q30M PRN Administration CIWA >8 Protocol Losartan Potassium 100 mg 06/04/18 12:00 06/04/18 12:48 Cozaar PO 100 mg 1200 STANISLAV Administration Metoprolol Succinate 100 mg 06/04/18 11:00 06/04/18 11:04 Toprol Xl PO 100 mg DAILY STANISLAV Administration Morphine Sulfate 4 mg 05/31/18 04:09 06/04/18 13:26 Morphine (Carpuject) IVP 4 mg Q2HR PRN Administration Pain 8 to 10 Ondansetron HCl 4 mg 05/31/18 04:09 05/31/18 05:15 Zofran Inj IVP 4 mg Q6HR PRN Administration Nausea / Vomiting Oxycodone HCl 5 mg 06/04/18 10:24 06/04/18 11:04 Roxicodone PO 5 mg Q4HR PRN Administration PAIN Pantoprazole Sodium 40 mg 05/31/18 07:00 06/04/18 06:30 Protonix IVP 40 mg QDAC STANISLAV Administration Prochlorperazine Edisylate 10 mg 05/31/18 04:09 05/31/18 10:27 Compazine Inj IVP 10 mg Q6HR PRN Administration Nausea / Vomiting Sodium Chloride 10 ml 05/31/18 04:09 06/03/18 06:28 Normal Saline Flush 0.9% IVP 10 ml PRN PRN Administration NEEDED PER PROVIDER ORDERS Sodium Chloride 10 ml 05/31/18 09:00 06/04/18 10:25 Normal Saline Flush 0.9% IVP 10 ml 0100,[id number],1700 STANISLAV Administration - Lab Result Fish Bone Diagrams: 06/04/18 05:00 06/04/18 05:00 - Additional Planning My Orders: My Active Orders 06/04/18 10:24 oxyCODONE [Roxicodone] 5 mg PO Q4HR PRN 06/04/18 11:00 Metoprolol Succinate [Toprol Xl] 100 mg PO DAILY amLODIPine [Norvasc] 5 mg PO DAILY 06/04/18 12:00 Losartan [Cozaar] 100 mg PO 1200 Subjective - Subjective Patient Reports: Feeling Better, Resting Comfortably Nursing Reports: Other (Pt off restraints, answering appropriately.) Objective Vital Signs: Vital Signs - 24 hr 06/03/18 06/03/18 06/03/18 15:00 16:00 17:00 Temperature 36.4 C L 36.4 C L Heart Rate Heart Rate [ 42 L 46 L 53 L Monitoring electrodes] Respiratory 18 24 17 Rate Blood Pressure Blood Pressure 166/88 H 171/102 H 187/103 H [Right Brachial artery] O2 Saturation 98 100 98 06/03/18 06/03/18 06/03/18 18:00 19:00 20:00 Temperature 36.6 C Heart Rate Heart Rate [ 44 L 47 L 44 L Monitoring electrodes] Respiratory 15 15 16 Rate Blood Pressure Blood Pressure 163/85 H 159/85 H 148/81 H [Right Brachial artery] O2 Saturation 100 100 99 06/03/18 06/03/18 06/03/18 21:00 22:00 23:00 Temperature Heart Rate Heart Rate [ 43 L 43 L 44 L Monitoring electrodes] Respiratory 14 15 15 Rate Blood Pressure Blood Pressure 161/87 H 158/84 H 153/83 H [Right Brachial artery] O2 Saturation 100 100 99 06/04/18 06/04/18 06/04/18 00:00 01:00 02:00 Temperature 36.5 C Heart Rate Heart Rate [ 47 L 47 L 49 L Monitoring electrodes] Respiratory 16 14 14 Rate Blood Pressure Blood Pressure 145/79 H 151/78 H 144/80 H [Right Brachial artery] O2 Saturation 100 06/04/18 06/04/18 06/04/18 03:00 04:00 04:59 Temperature 36.7 C Heart Rate Heart Rate [ 51 L 48 L 53 L Monitoring electrodes] Respiratory 14 15 13 Rate Blood Pressure Blood Pressure 145/76 H 156/84 H 142/85 H [Right Brachial artery] O2 Saturation 100 99 06/04/18 06/04/18 06/04/18 06:00 07:00 07:44 Temperature Heart Rate Heart Rate [ 58 L 55 L 69 Monitoring electrodes] Respiratory 19 14 17 Rate Blood Pressure Blood Pressure 147/83 H 147/83 H [Right Brachial artery] O2 Saturation 100 100 06/04/18 06/04/18 06/04/18 08:09 09:00 10:00 Temperature 36.6 C 36.5 C Heart Rate Heart Rate [ 55 L 50 L 59 L Monitoring electrodes] Respiratory 13 13 15 Rate Blood Pressure Blood Pressure 186/96 H 191/100 H 175/100 H [Right Brachial artery] O2 Saturation 99 100 99 06/04/18 06/04/18 06/04/18 11:00 11:49 11:50 Temperature Heart Rate 49 L 46 L Heart Rate [ 47 L Monitoring electrodes] Respiratory 14 13 13 Rate Blood Pressure Blood Pressure 182/83 H [Right Brachial artery] O2 Saturation 99 06/04/18 06/04/18 06/04/18 11:51 11:52 11:53 Temperature Heart Rate 48 L 48 L 56 L Heart Rate [ Monitoring electrodes] Respiratory 14 13 10 L Rate Blood Pressure Blood Pressure [Right Brachial artery] O2 Saturation 06/04/18 06/04/18 06/04/18 11:54 11:55 11:56 Temperature Heart Rate 57 L 54 L 55 L Heart Rate [ Monitoring electrodes] Respiratory 12 11 L 15 Rate Blood Pressure Blood Pressure [Right Brachial artery] O2 Saturation 06/04/18 06/04/18 06/04/18 11:57 11:58 11:59 Temperature Heart Rate 53 L 49 L 57 L Heart Rate [ Monitoring electrodes] Respiratory 14 18 16 Rate Blood Pressure 180/97 H Blood Pressure [Right Brachial artery] O2 Saturation 06/04/18 06/04/18 06/04/18 12:00 13:00 13:02 Temperature Heart Rate 49 L Heart Rate [ 49 L 51 L Monitoring electrodes] Respiratory 17 14 13 Rate Blood Pressure Blood Pressure 180/97 H 170/82 H [Right Brachial artery] O2 Saturation 99 99 06/04/18 06/04/18 06/04/18 13:03 14:00 14:02 Temperature Heart Rate 50 L 47 L Heart Rate [ 47 L Monitoring electrodes] Respiratory 14 14 12 Rate Blood Pressure 170/82 H 176/92 H Blood Pressure 176/92 H [Right Brachial artery] O2 Saturation 99 Oxygen O2 Source Room air I&O (Last 24 Hrs): Intake and Output Totals x24h 06/02/18 06/03/18 06/04/18 23:59 23:59 23:59 Intake Total 5116.306 4598.370 4393.044 Output Total 5343 4130 3690 Balance -218.694 469.370 703.044 General: Alert, Oriented x3 HEENT: Mucous membr. moist/pink Neck: Supple, No JVD Neuro: Non Focal Cardiovascular: Regular rate, No murmurs Respiratory: No respiratory distress, Breath sounds nml Abdomen: Soft Extremities: Other (1+ edema) - Results Results: Laboratory Results WBC 5.0 x10^3/uL (4.8-10.8) 06/04/18 05:00 RBC 4.54 10^6/uL (4.70-6.10) L 06/04/18 05:00 Hgb 13.0 g/dL (14.0-18.0) L 06/04/18 05:00 Hct 40.0 % (42.0-52.0) L 06/04/18 05:00 MCV 88.1 fL (80.0-94.0) 06/04/18 05:00 MCH 28.6 pg (27.0-31.0) 06/04/18 05:00 MCHC 32.4 g/dL (32.0-36.0) 06/04/18 05:00 RDW 14.8 % (12.0-15.0) 06/04/18 05:00 Plt Count 101 10^3/uL (130-450) L 06/04/18 05:00 MPV 9.2 fL (7.4-11.4) 06/04/18 05:00 Neut # (Auto) 2.7 10^3/uL (1.5-6.6) 06/04/18 05:00 Lymph # (Auto) 1.9 10^3/uL (1.5-3.5) 06/04/18 05:00 [place] # (Auto) 0.3 10^3/uL (0.0-1.0) 06/04/18 05:00 Eos # (Auto) 0.1 10^3/uL (0.0-0.7) 06/04/18 05:00 Baso # (Auto) 0.0 10^3/uL (0.0-0.1) 06/04/18 05:00 Absolute Nucleated RBC 0.01 x10^3/uL 06/04/18 05:00 Nucleated RBC % 0.1 /100WBC 06/04/18 05:00 Manual Slide Review Indicated 05/31/18 01:42 Platelet Estimate NORMAL (130-450,000) (NORMAL) 05/31/18 01:42 Platelet Morphology NORMAL APPEARANCE (NORMAL) 05/31/18 01:42 RBC Morph Micro Appear NORMAL APPEARANCE (NORMAL) 05/31/18 01:42 ESR 4 mm/Hr (0-15) 05/31/18 01:42 PT 12.3 secs (9.9-12.6) 05/31/18 01:42 INR 1.1 (0.8-1.2) 05/31/18 01:42 VBG pH 7.363 (7.31-7.41) 06/01/18 15:45 Ionized Calcium 1.10 mmol/L (1.15-1.33) L 06/01/18 15:45 Sodium 140 mmol/L (135-145) 06/04/18 05:00 Potassium 3.4 mmol/L (3.5-5.0) L 06/04/18 05:00 Chloride 111 mmol/L (101-111) 06/04/18 05:00 Carbon Dioxide 21 mmol/L (21-32) 06/04/18 05:00 Anion Gap 8.0 (6-13) 06/04/18 05:00 BUN 11 mg/dL (6-20) 06/04/18 05:00 Creatinine 1.0 mg/dL (0.6-1.2) 06/04/18 05:00 Estimated GFR (MDRD) 80 (>89) L 06/04/18 05:00 Glucose 103 mg/dL (70-100) H 06/04/18 05:00 Lactic Acid 0.9 mmol/L (0.5-2.2) 06/04/18 05:00 Calcium 8.1 mg/dL (8.5-10.3) L 06/04/18 05:00 Phosphorus 3.5 mg/dL (2.5-4.6) 06/04/18 05:00 Magnesium 1.5 mg/dL (1.7-2.8) L 06/04/18 05:00 Total Bilirubin 2.6 mg/dL (0.2-1.0) H 06/04/18 05:00 AST 125 IU/L (10-42) H 06/04/18 05:00 ALT 129 IU/L (10-60) H 06/04/18 05:00 Alkaline Phosphatase 410 IU/L (42-121) H 06/04/18 05:00 Total Creatine Kinase 58 IU/L (22-269) 05/31/18 05:33 Total Protein 5.8 g/dL (6.7-8.2) L 06/04/18 05:00 Albumin 2.7 g/dL (3.2-5.5) L 06/04/18 05:00 Globulin 3.1 g/dL (2.1-4.2) 06/04/18 05:00 Albumin/Globulin Ratio 0.9 (1.0-2.2) L 06/04/18 05:00 Lipase 33 U/L (22-51) 05/31/18 01:42 Salicylates < 6.0 mg/dL 05/31/18 05:33 Urine Opiates Screen POSITIVE (NEGATIVE) H 05/31/18 10:17 Ur Oxycodone Screen NEGATIVE (NEGATIVE) 05/31/18 10:17 Urine Methadone Screen NEGATIVE (NEGATIVE) 05/31/18 10:17 Ur Propoxyphene Screen NEGATIVE (NEGATIVE) 05/31/18 10:17 Acetaminophen < 10 ug/mL (10-30) L 05/31/18 05:33 Ur Barbiturates Screen NEGATIVE (NEGATIVE) 05/31/18 10:17 Ur Tricyclics Screen NEGATIVE (NEGATIVE) 05/31/18 10:17 Ur Phencyclidine Scrn NEGATIVE (NEGATIVE) 05/31/18 10:17 Ur Amphetamine Screen POSITIVE (NEGATIVE) H 05/31/18 10:17 U Methamphetamines Scrn POSITIVE (NEGATIVE) H 05/31/18 10:17 U Benzodiazepines Scrn NEGATIVE (NEGATIVE) 05/31/18 10:17 Urine Cocaine Screen NEGATIVE (NEGATIVE) 05/31/18 10:17 U Cannabinoids Screen NEGATIVE (NEGATIVE) 05/31/18 10:17 Ethyl Alcohol 34.1 mg/dL 05/31/18 01:42 ANA PAULA Screen NEGATIVE (NEGATIVE) 05/31/18 04:10 CMV DNA Qnt Source blood 05/31/18 04:10 CMV Qnt PCR IU/mL <200 IU/mL 05/31/18 04:10 CMV Qnt PCR log IU/mL <2.30 Log IU/mL 05/31/18 04:10 EBV Capsid Ag IgG Ab 389.00 U/mL H 05/31/18 04:10 Hepatitis A IgM Ab NON-REACTIVE (NON-REACTIVE) 05/31/18 01:42 Hep Bs Antigen NON-REACTIVE (NON-REACTIVE) 05/31/18 01:42 Hep B Core IgM Ab NON-REACTIVE (NON-REACTIVE) 05/31/18 01:42 Hepatitis C Antibody REACTIVE (NON-REACTIVE) A 05/31/18 01:42 Hep C Ab Signal/Cutoff 15.00 (<1.00) H 05/31/18 01:42 HCV RNA (PCR) IUs/ml <15 NOT DETECTED IU/mL (NOT DETECTED) 06/02/18 04:30 HCV RNA PCR log IUs/ml <1.18 NOT DETECTED Log IU/mL (NOT DETECTED) 06/02/18 04:30 Hepatitis C RNA Comment SEE NOTE 06/02/18 04:30 HIV 1&2 Ag/Ab, 4th Gen NON-REACTIVE (NON-REACTIVE) 05/31/18 04:10 Influenza A (Rapid) Negative (Negative) 05/31/18 08:50 Influenza B (Rapid) Negative (Negative) 05/31/18 08:50
[2018-06-04] MEDS: SODIUM CHLORIDE FLUSH 0.9% 10 ML SYRINGE IVP PRN (19:16)
[2018-06-05] MEDS: oxyCODONE 5 MG TABLET PO PRN ×4 (00:44→16:03)
[2018-06-05 03:23] LABS: HEPATITIS C VIRAL RNA GENOTYPE NOT DETECTED
[2018-06-05] MEDS: SODIUM CHLORIDE FLUSH 0.9% 10 ML SYRINGE IVP SCH ×3 (05:21→16:03)
[2018-06-05 06:35] LABS: BASOPHILS % (AUTO) 0.8 %; EOSINOPHILS # (AUTO) 0.2 10^3/uL (0.0-0.7); EOSINOPHILS % (AUTO) 3.3 %; HGB - HEMOGLOBIN 14.2 g/dL (14.0-18.0); LYMPHOCYTES % (AUTO) 39.9 %; MEAN CORPUSCULAR HEMOGLOBIN 28.8 pg (27.0-31.0); MEAN CORPUSCULAR HGB CONC 33.4 g/dL (32.0-36.0); MEAN CORPUSCULAR VOLUME 86.2 fL (80.0-94.0); MEAN PLATELET VOLUME 9.5 fL (7.4-11.4); MONOCYTES # (AUTO) 0.6 10^3/uL (0.0-1.0); MONOCYTES % (AUTO) 11.7 %; NEUTROPHILS # (AUTO) 2.2 10^3/uL (1.5-6.6); NEUTROPHILS % (AUTO) 44.3 %; PLT - PLATELET COUNT 119 10^3/uL (130-450); RED BLOOD COUNT 4.95 10^6/uL (4.70-6.10); RED CELL DISTRIBUTION WIDTH 14.4 % (12.0-15.0)
[2018-06-05 06:49] LABS: ALBUMIN 3.4 g/dL (3.2-5.5); ALBUMIN/GLOBULIN RATIO 1.1 (1.0-2.2); BILIRUBIN,TOTAL 1.9 mg/dL (0.2-1.0); CALCIUM 8.7 mg/dL (8.5-10.3); CREATININE 0.8 mg/dL (0.6-1.2); TOTAL PROTEIN 6.5 g/dL (6.7-8.2)
[2018-06-05] MEDS ORDERED: POTASSIUM CHLORIDE 20 MEQ TABLET PO ONE (06:56)
--- NOTE | 2018-06-05 08:17 | PROVIDER PROGRESS NOTE ---
Assessment/Plan - Problem List (1) Alcohol withdrawal delirium Assessment/Plan: Delerium has resolved. He is speaking with the [facility] about resources for help with drug and alcohol abuse. Start daily po Thiamine. Will transfer out of ICU today and order PT to start. Possible DCh tomorrow. 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 His last use was right before admission. His somnolence therefore was also from coming down off of Meth. (3) Liver failure, acute Assessment/Plan: LFTs improving daily. (4) Diarrhea Qualifiers: Diarrhea type: functional diarrhea Qualified Code(s): K59.1 - Functional diarrhea Assessment/Plan: C. diff result still pending, but this was a tiny liquid stool, not copious and foul-smelling. If stool still loose, will start Imodium. (5) HTN (hypertension) Assessment/Plan: Patient restarted on his thee po BP meds just yesterday. No further iv antibiotics will be given, since there was no source of infection found, therefore he won't get the high salt load from iv antibiotics. Will also change his Reg diet to a low salt diet. (6) Hypokalemia Assessment/Plan: Replace and monitor daily electrolytes. - Current Meds Current Meds: Current Medications Generic Name Dose Route Start Last Admin Trade Name Freq PRN Reason Stop Dose Admin Amlodipine Besylate 5 mg 06/04/18 11:00 06/04/18 11:05 Norvasc PO 5 mg DAILY STANISLAV Administration Clonidine HCl 1 patch 06/03/18 11:00 06/03/18 11:12 Azzanecm-Omn-7 TOP 1 patch Q7D STANISLAV Administration Lorazepam 2 mg 05/31/18 12:42 06/02/18 20:23 Ativan Inj (Vial) IVP 2 mg Q30M PRN Administration CIWA >8 Protocol Losartan Potassium 100 mg 06/04/18 12:00 06/04/18 12:48 Cozaar PO 100 mg 1200 STANISLAV Administration Metoprolol Succinate 100 mg 06/04/18 11:00 06/04/18 11:04 Toprol Xl PO 100 mg DAILY STANISLAV Administration Morphine Sulfate 4 mg 05/31/18 04:09 06/04/18 19:15 Morphine (Carpuject) IVP 4 mg Q2HR PRN Administration Pain 8 to 10 Ondansetron HCl 4 mg 05/31/18 04:09 05/31/18 05:15 Zofran Inj IVP 4 mg Q6HR PRN Administration Nausea / Vomiting Oxycodone HCl 5 mg 06/04/18 10:24 06/05/18 05:21 Roxicodone PO 5 mg Q4HR PRN Administration PAIN Sodium Chloride 10 ml 05/31/18 04:09 06/04/18 19:16 Normal Saline Flush 0.9% IVP 10 ml PRN PRN Administration NEEDED PER PROVIDER ORDERS Sodium Chloride 10 ml 05/31/18 09:00 06/05/18 05:21 Normal Saline Flush 0.9% IVP 20 ml 0100,0900,1700 STANISLAV Administration - Lab Result Fish Bone Diagrams: 06/05/18 06:10 06/05/18 06:10 - Additional Planning My Orders: My Active Orders 06/04/18 10:24 oxyCODONE [Roxicodone] 5 mg PO Q4HR PRN 06/04/18 11:00 Metoprolol Succinate [Toprol Xl] 100 mg PO DAILY amLODIPine [Norvasc] 5 mg PO DAILY 06/04/18 12:00 Losartan [Cozaar] 100 mg PO 1200 06/05/18 Social Work Consult [CONS] Routine Evaluate and Treat PT [PT] Routine 06/05/18 08:13 Transfer [Admit \\ Transfer \\ Status] [RC] .ONCE Subjective - Subjective Nursing Reports: Other (He told his RN that he has been Dx with "bladder CA and possibly prostate cancer recently".) Objective Vital Signs: Vital Signs - 24 hr 06/04/18 06/04/18 06/04/18 09:00 10:00 11:00 Temperature 36.5 C Heart Rate Heart Rate [ 50 L 59 L 47 L Monitoring electrodes] Respiratory 13 15 14 Rate Blood Pressure Blood Pressure 191/100 H 175/100 H 182/83 H [Right Brachial artery] O2 Saturation 100 99 99 06/04/18 06/04/18 06/04/18 11:49 11:50 11:51 Temperature Heart Rate 49 L 46 L 48 L Heart Rate [ Monitoring electrodes] Respiratory 13 13 14 Rate Blood Pressure Blood Pressure [Right Brachial artery] O2 Saturation 06/04/18 06/04/18 06/04/18 11:52 11:53 11:54 Temperature Heart Rate 48 L 56 L 57 L Heart Rate [ Monitoring electrodes] Respiratory 13 10 L 12 Rate Blood Pressure Blood Pressure [Right Brachial artery] O2 Saturation 06/04/18 06/04/18 06/04/18 11:55 11:56 11:57 Temperature Heart Rate 54 L 55 L 53 L Heart Rate [ Monitoring electrodes] Respiratory 11 L 15 14 Rate Blood Pressure Blood Pressure [Right Brachial artery] O2 Saturation 06/04/18 06/04/18 06/04/18 11:58 11:59 12:00 Temperature Heart Rate 49 L 57 L Heart Rate [ 49 L Monitoring electrodes] Respiratory 18 16 17 Rate Blood Pressure 180/97 H Blood Pressure 180/97 H [Right Brachial artery] O2 Saturation 99 06/04/18 06/04/18 06/04/18 13:00 13:02 13:03 Temperature Heart Rate 49 L 50 L Heart Rate [ 51 L Monitoring electrodes] Respiratory 14 13 14 Rate Blood Pressure 170/82 H Blood Pressure 170/82 H [Right Brachial artery] O2 Saturation 99 06/04/18 06/04/18 06/04/18 14:00 14:02 15:00 Temperature Heart Rate 47 L Heart Rate [ 47 L 59 L Monitoring electrodes] Respiratory 14 12 12 Rate Blood Pressure 176/92 H Blood Pressure 176/92 H 178/97 H [Right Brachial artery] O2 Saturation 99 99 06/04/18 06/04/18 06/04/18 15:55 18:00 20:00 Temperature 36.4 C L 36.4 C L Heart Rate Heart Rate [ 53 L 57 L 54 L Monitoring electrodes] Respiratory 147 H 15 11 L Rate Blood Pressure Blood Pressure 167/93 H 177/80 H 176/109 H [Right Brachial artery] O2 Saturation 99 99 99 06/04/18 06/04/18 06/04/18 21:00 22:00 22:45 Temperature Heart Rate Heart Rate [ 62 56 L Monitoring electrodes] Respiratory 13 12 Rate Blood Pressure Blood Pressure 208/131 H 193/106 H 175/82 H [Right Brachial artery] O2 Saturation 99 99 06/04/18 06/05/18 06/05/18 23:00 00:00 01:00 Temperature Heart Rate Heart Rate [ 57 L 61 62 Monitoring electrodes] Respiratory 10 L 14 12 Rate Blood Pressure Blood Pressure 178/99 H [Right Brachial artery] O2 Saturation 99 100 99 06/05/18 06/05/18 06/05/18 02:00 03:59 05:00 Temperature 36.7 C Heart Rate Heart Rate [ 57 L 58 L 55 L Monitoring electrodes] Respiratory 10 L 12 12 Rate Blood Pressure Blood Pressure 181/106 H [Right Brachial artery] O2 Saturation 99 99 99 06/05/18 06/05/18 06/05/18 06:00 07:00 08:00 Temperature 36.4 C L Heart Rate Heart Rate [ 62 72 56 L Monitoring electrodes] Respiratory 14 14 15 Rate Blood Pressure Blood Pressure 155/84 H [Right Brachial artery] O2 Saturation 100 99 99 Oxygen O2 Source Room air I&O (Last 24 Hrs): Intake and Output Totals x24h 06/03/18 06/04/18 06/05/18 23:59 23:59 23:59 Intake Total 4599.370 5493.044 1195 Output Total 4130 4965 Balance 469.370 699.049 1802 General: Alert, Oriented x3, Other (Fatigued) HEENT: Mucous membr. moist/pink Neck: Supple, No JVD Neuro: Non Focal Cardiovascular: Regular rate, No murmurs Respiratory: No respiratory distress, Breath sounds nml Abdomen: Soft Extremities: No edema - Results Results: Laboratory Results WBC 5.0 x10^3/uL (4.8-10.8) 06/05/18 06:10 RBC 4.95 10^6/uL (4.70-6.10) 06/05/18 06:10 Hgb 14.2 g/dL (14.0-18.0) 06/05/18 06:10 Hct 42.7 % (42.0-52.0) 06/05/18 06:10 MCV 86.2 fL (80.0-94.0) 06/05/18 06:10 MCH 28.8 pg (27.0-31.0) 06/05/18 06:10 MCHC 33.4 g/dL (32.0-36.0) 06/05/18 06:10 RDW 14.4 % (12.0-15.0) 06/05/18 06:10 Plt Count 119 10^3/uL (130-450) L 06/05/18 06:10 MPV 9.5 fL (7.4-11.4) 06/05/18 06:10 Neut # (Auto) 2.2 10^3/uL (1.5-6.6) 06/05/18 06:10 Lymph # (Auto) 2.0 10^3/uL (1.5-3.5) 06/05/18 06:10 [place] # (Auto) 0.6 10^3/uL (0.0-1.0) 06/05/18 06:10 Eos # (Auto) 0.2 10^3/uL (0.0-0.7) 06/05/18 06:10 Baso # (Auto) 0.0 10^3/uL (0.0-0.1) 06/05/18 06:10 Absolute Nucleated RBC 0.01 x10^3/uL 06/05/18 06:10 Nucleated RBC % 0.3 /100WBC 06/05/18 06:10 Manual Slide Review Indicated 05/31/18 01:42 Platelet Estimate NORMAL (130-450,000) (NORMAL) 05/31/18 01:42 Platelet Morphology NORMAL APPEARANCE (NORMAL) 05/31/18 01:42 RBC Morph Micro Appear NORMAL APPEARANCE (NORMAL) 05/31/18 01:42 ESR 4 mm/Hr (0-15) 05/31/18 01:42 PT 12.3 secs (9.9-12.6) 05/31/18 01:42 INR 1.1 (0.8-1.2) 05/31/18 01:42 VBG pH 7.363 (7.31-7.41) 06/01/18 15:45 Ionized Calcium 1.10 mmol/L (1.15-1.33) L 06/01/18 15:45 Sodium 136 mmol/L (135-145) 06/05/18 06:10 Potassium 3.2 mmol/L (3.5-5.0) L 06/05/18 06:10 Chloride 105 mmol/L (101-111) 06/05/18 06:10 Carbon Dioxide 23 mmol/L (21-32) 06/05/18 06:10 Anion Gap 8.0 (6-13) 06/05/18 06:10 BUN 9 mg/dL (6-20) 06/05/18 06:10 Creatinine 0.8 mg/dL (0.6-1.2) 06/05/18 06:10 Estimated GFR (MDRD) 104 (>89) 06/05/18 06:10 Glucose 123 mg/dL (70-100) H 06/05/18 06:10 Lactic Acid 0.9 mmol/L (0.5-2.2) 06/04/18 05:00 Calcium 8.7 mg/dL (8.5-10.3) 06/05/18 06:10 Phosphorus 3.5 mg/dL (2.5-4.6) 06/04/18 05:00 Magnesium 1.5 mg/dL (1.7-2.8) L 06/04/18 05:00 Total Bilirubin 1.9 mg/dL (0.2-1.0) H 06/05/18 06:10 AST 110 IU/L (10-42) H 06/05/18 06:10 ALT 128 IU/L (10-60) H 06/05/18 06:10 Alkaline Phosphatase 549 IU/L (42-121) H 06/05/18 06:10 Total Creatine Kinase 58 IU/L (22-269) 05/31/18 05:33 Total Protein 6.5 g/dL (6.7-8.2) L 06/05/18 06:10 Albumin 3.4 g/dL (3.2-5.5) 06/05/18 06:10 Globulin 3.1 g/dL (2.1-4.2) 06/05/18 06:10 Albumin/Globulin Ratio 1.1 (1.0-2.2) 06/05/18 06:10 Lipase 33 U/L (22-51) 05/31/18 01:42 Salicylates < 6.0 mg/dL 05/31/18 05:33 Urine Opiates Screen POSITIVE (NEGATIVE) H 05/31/18 10:17 Ur Oxycodone Screen NEGATIVE (NEGATIVE) 05/31/18 10:17 Urine Methadone Screen NEGATIVE (NEGATIVE) 05/31/18 10:17 Ur Propoxyphene Screen NEGATIVE (NEGATIVE) 05/31/18 10:17 Acetaminophen < 10 ug/mL (10-30) L 05/31/18 05:33 Ur Barbiturates Screen NEGATIVE (NEGATIVE) 05/31/18 10:17 Ur Tricyclics Screen NEGATIVE (NEGATIVE) 05/31/18 10:17 Ur Phencyclidine Scrn NEGATIVE (NEGATIVE) 05/31/18 10:17 Ur Amphetamine Screen POSITIVE (NEGATIVE) H 05/31/18 10:17 U Methamphetamines Scrn POSITIVE (NEGATIVE) H 05/31/18 10:17 U Benzodiazepines Scrn NEGATIVE (NEGATIVE) 05/31/18 10:17 Urine Cocaine Screen NEGATIVE (NEGATIVE) 05/31/18 10:17 U Cannabinoids Screen NEGATIVE (NEGATIVE) 05/31/18 10:17 Ethyl Alcohol 34.1 mg/dL 05/31/18 01:42 ANA PAULA Screen NEGATIVE (NEGATIVE) 05/31/18 04:10 CMV DNA Qnt Source blood 05/31/18 04:10 CMV Qnt PCR IU/mL <200 IU/mL 05/31/18 04:10 CMV Qnt PCR log IU/mL <2.30 Log IU/mL 05/31/18 04:10 EBV Capsid Ag IgG Ab 389.00 U/mL H 05/31/18 04:10 Hepatitis A IgM Ab NON-REACTIVE (NON-REACTIVE) 05/31/18 01:42 Hep Bs Antigen NON-REACTIVE (NON-REACTIVE) 05/31/18 01:42 Hep B Core IgM Ab NON-REACTIVE (NON-REACTIVE) 05/31/18 01:42 Hepatitis C Antibody REACTIVE (NON-REACTIVE) A 05/31/18 01:42 Hep C Ab Signal/Cutoff 15.00 (<1.00) H 05/31/18 01:42 HCV RNA Genotype NOT DETECTED 06/02/18 04:30 HCV RNA (PCR) IUs/ml <15 NOT DETECTED IU/mL (NOT DETECTED) 06/02/18 04:30 HCV RNA PCR log IUs/ml <1.18 NOT DETECTED Log IU/mL (NOT DETECTED) 06/02/18 04:30 Hepatitis C RNA Comment SEE NOTE 06/02/18 04:30 HIV 1&2 Ag/Ab, 4th Gen NON-REACTIVE (NON-REACTIVE) 05/31/18 04:10 Influenza A (Rapid) Negative (Negative) 05/31/18 08:50 Influenza B (Rapid) Negative (Negative) 05/31/18 08:50
[2018-06-05 09:04] LABS: MAGNESIUM 1.8 mg/dL (1.7-2.8); PHOSPHORUS 4.8 mg/dL (2.5-4.6)
[2018-06-05] MEDS: ONDANSETRON 4 MG/2 ML VIAL IVP PRN (09:07)
[2018-06-05] MEDS ORDERED: CYCLOBENZAPRINE 10 MG TABLET PO PRN (10:29)
[2018-06-05] MEDS: amLODIPine 5 MG TABLET PO SCH (10:48)
[2018-06-05] MEDS: METOPROLOL SUCCINATE 50 MG TABLET PO SCH (10:48)
[2018-06-05] MEDS: POTASSIUM CHLORIDE 20 MEQ TABLET PO SCH ×2 (10:49→20:34)
[2018-06-05] MEDS: THIAMINE 100 MG TABLET PO SCH (10:50)
[2018-06-05] MEDS: MORPHINE 2 MG/ML CARPUJECT IVP PRN ×2 (11:58→16:03)
[2018-06-05] MEDS: LOSARTAN 50 MG TABLET PO SCH (11:59)
[2018-06-05] MEDS: SODIUM CHLORIDE FLUSH 0.9% 10 ML SYRINGE IVP PRN (11:59)
[2018-06-05] MEDS ORDERED: oxyCODONE 5 MG TABLET PO PRN (17:56)
[2018-06-05] MEDS ORDERED: LOPERAMIDE 2 MG/10 ML UDC PO PRN (17:58)
[2018-06-05 20:21] LABS: GLUCOSE, URINE (UA) NEGATIVE (NEGATIVE); KETONES,URINE (UA) TRACE mg/dL (NEGATIVE); LEUKOCYTE ESTERASE, URINE NEGATIVE (NEGATIVE); NITRITE,URINE NEGATIVE (NEGATIVE); OCCULT BLOOD,URINE NEGATIVE (NEGATIVE); PROTEIN,URINE NEGATIVE (NEGATIVE); UROBILINOGEN,URINE 1 (NORMAL) E.U./dL (NORMAL)
[2018-06-05 20:26] LABS: CLARITY,URINE CLEAR (CLEAR)
[2018-06-05] MEDS ORDERED: IOPAMIDOL-300 100 ML VIAL ONE (20:27)
[2018-06-05 20:28] LABS: BILIRUBIN,URINE MODERATE (NEGATIVE); ICTOTEST,URINE POSITIVE
[2018-06-05 20:35] LABS: BACTERIA,URINE Few /HPF (None Seen); RBC,URINE 0-5 /HPF (0-5); SQUAMOUS EPITHELIAL CELL,UR FEW Squamous (<= Few)
[2018-06-05] MEDS ORDERED: IOPAMIDOL-300 100 ML VIAL IVP ONE (22:06)
--- NOTE | 2018-06-05 22:09 | CT Report ---
Reason: Crampy abd pain Procedure Date: 06/05/2018 Accession Number: [id number] / [id number] Procedure: CT - Abdomen/Pelvis W/WO CPT Code: FULL RESULT: EXAM: CT ABDOMEN WITHOUT AND WITH CONTRAST, CT PELVIS WITH CONTRAST EXAM DATE: 06/05/2018 09:34 PM. HISTORY: Crampy abdominal pain. COMPARISON: ABDOMEN/PELVIS W05/31/2018 2:18 AM ABDOMEN/PELVIS W08/02/2016 10:44 PM. TECHNIQUE: Routine helical CT imaging was performed through the abdomen before and after administration of IV contrast: 100 mL Isovue 300. Portal venous phase through the abdomen and pelvis. Enteric contrast: No. Reconstruction: Coronal and sagittal. In accordance with CT protocol optimization, one or more of the following dose reduction techniques were utilized for this exam: automated exposure control, adjustment of mA and/or KV based on patient size, or use of iterative reconstructive technique. FINDINGS: Lung Bases: Unremarkable. Liver: Unremarkable. No suspicious masses. Gallbladder/Bile Ducts: Unremarkable post cholecystectomy. Spleen: Unremarkable. Pancreas: Unremarkable. Adrenal Glands: Unremarkable. Kidneys: Unremarkable. No suspicious masses or hydronephrosis. Peritoneal Cavity/Bowel: No bowel obstruction or inflammatory process seen. No free air or significant free fluid. No masses or adenopathy. The appendix is normal. No excessive stool burden. Pelvic Organs: Bladder and prostate appear unremarkable. Vasculature: No aneurysms or other significant abnormality. Bones: No significant abnormality. Other: Stable small periumbilical fat-containing hernia without apparent complication. IMPRESSION: 1. No acute inflammatory or obstructive process seen in the abdomen or pelvis. 2. Post cholecystectomy. 3. Small fat-containing periumbilical hernia. [facility]
[2018-06-06] MEDS: SODIUM CHLORIDE FLUSH 0.9% 10 ML SYRINGE IVP SCH ×2 (00:45→08:19)
[2018-06-06 06:47] LABS: BASOPHILS % (AUTO) 0.4 %; EOSINOPHILS # (AUTO) 0.2 10^3/uL (0.0-0.7); EOSINOPHILS % (AUTO) 2.8 %; HGB - HEMOGLOBIN 14.7 g/dL (14.0-18.0); LYMPHOCYTES # (AUTO) 2.3 10^3/uL (1.5-3.5); LYMPHOCYTES % (AUTO) 40.3 %; MEAN CORPUSCULAR HGB CONC 33.3 g/dL (32.0-36.0); MONOCYTES # (AUTO) 0.8 10^3/uL (0.0-1.0); MONOCYTES % (AUTO) 13.4 %; NEUTROPHILS # (AUTO) 2.5 10^3/uL (1.5-6.6); NEUTROPHILS % (AUTO) 43.1 %; PLT - PLATELET COUNT 138 10^3/uL (130-450); RED BLOOD COUNT 5.07 10^6/uL (4.70-6.10); RED CELL DISTRIBUTION WIDTH 14.4 % (12.0-15.0); WHITE BLOOD COUNT 5.8 x10^3/uL (4.8-10.8)
[2018-06-06 06:58] LABS: ALBUMIN 3.6 g/dL (3.2-5.5); BILIRUBIN,TOTAL 1.9 mg/dL (0.2-1.0); CALCIUM 8.7 mg/dL (8.5-10.3); CREATININE 0.9 mg/dL (0.6-1.2); MAGNESIUM 1.9 mg/dL (1.7-2.8); TOTAL PROTEIN 7.3 g/dL (6.7-8.2)
[2018-06-06] MEDS: amLODIPine 5 MG TABLET PO SCH (08:17)
[2018-06-06] MEDS: METOPROLOL SUCCINATE 50 MG TABLET PO SCH (08:17)
[2018-06-06] MEDS: ONDANSETRON 4 MG/2 ML VIAL IVP PRN (08:18)
[2018-06-06] MEDS: POTASSIUM CHLORIDE 20 MEQ TABLET PO SCH (08:18)
[2018-06-06] MEDS: THIAMINE 100 MG TABLET PO SCH (08:18)
--- NOTE | 2018-06-06 09:29 | Discharge Plan ---
Discharge Plan Disposition: Home, Self Care Condition: Fair Prescriptions: Ondansetron HCl [Zofran] 8 mg PO Q4HR PRN #30 tablet PRN Reason: Nausea / Vomiting Thiamine [Vitamin B-1] 100 mg PO DAILY #100 tablet Diet: Regular Activity Restrictions: Activity as Tolerated Shower Restrictions: No Driving Restrictions: No Instruction Topics: Ondansetron tablets, Thiamine Vitamin B1 tablets, Hepatitis C, Hepatitis C Tx, Alcoholism Additional Instructions or Follow Up instructions: You were admitted to the hospital because we thought you had a severe bladder infection and sepsis. But after evaluating you we found you to be suffering from the consequences of drinking a bottle of fireball whiskey, and doing speed. You had severe withdrawal. You have been treated for infection and do not need any further antibiotics. But your liver was very sick during this admission. We find you to have hepatitis C antibodies and you need to go on to figure out which type of hepatitis C you have. You may be able to be treated for this. You can no longer drink any form of alcohol ever again. You can also no longer do methamphetamines. It could be lethal to you because of your liver condition. Please see your primary care provider in follow-up. Dr. Hughes will be able to guide you through which liver specialist you need to see. Also follow-up with a urologist about the issue of finding out why you have blood in your urine. You already have appointments for July for that. Take a vitamin and thiamine every day for the next 3 months. You have asked to go home on nausea medicines; we have prescribed Zofran. Please take your blood pressure pills on a regular basis. While you were here your blood pressure was elevated and your doctor will need to follow-up on that to make sure you do not need more pills. No Smoking: If you smoke, Please STOP! Call for help. Follow-up with: Blair Hughes MD [Primary Care Provider] -
[2018-06-06 09:44] VITALS: BP 152/102
--- NOTE | 2018-06-06 13:37 | DISCHARGE SUMMARY ---
Physician: Sarahi Montaño MD DATE OF ADMISSION: 05/31/2018 DATE OF DISCHARGE: 06/06/2018 DISCHARGE DIAGNOSES 1. Acute methamphetamine intoxication. 2. Acute alcohol intoxication. 3. Toxic metabolic encephalopathy 4. Liver failure, acute 5. Alcoholic hepatitis. 6. Neutropenia. 7. Diarrhea. 8. Hypokalemia. 9. History of hematuria. 10. Hypertension. 11. Hepatitis C antibody positive. DISCHARGE MEDICATIONS New: 1. Clonidine patch 0.2 mg every 7 days. 2. Thiamine 100 mg p.o. daily. 3. Zofran 8 mg p.o. daily. Medications, continued: 1. Acetaminophen 500 mg p.o. t.i.d. p.r.n. 2. Norvasc 5 mg p.o. daily 3. Ibuprofen 200-400 mg p.o. every 8 hours p.r.n. pain. 4. Losartan 100 mg p.o. daily 5. Metoprolol succinate 100 mg p.o. daily. PRINCIPAL PROCEDURES 1. CT of abdomen and pelvis shows cholecystectomy changes, no acute pathology identified. Lung bases are unremarkable. 2. Chest x-ray without any acute cardiopulmonary process. 3. Blood cultures without growth after 5 days. 4. C. difficile stool negative. 5. Campylobacter antigen assay negative, rest of stool cultures in process and pending. 6. Hepatitis C antibody reactive at 15. 7. Hepatitis C RNA by PCR not detected, and as such, genotype not detected. 8. EBV capsid antigen IgG antibody positive at 389. 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 9. Toxicology screen positive for opiates, amphetamines, methamphetamines before patient was treated. 10. Alcohol level 34.1. HOSPITAL COURSE: This is a 47-year-old man who has been having problems with methamphetamine and alcohol abuse since his late teens early 20s. He has a history of hypertension, pancreatitis and cholecystectomy. He has frequent ER visits for abdominal pain, many other admissions that did not require hospital admission. He developed abdominal pain on the right side with nausea and vomiting three days prior to admission. The day before admission, began having diarrhea, and the abdominal pain was not unbearable. He had high fevers and developed a headache. There was no change in his urine output, and there was no blood in urine or stool at that point in time. It was later found out that the patient has been having bouts of hematuria and is currently being evaluated by [facility] to see if he has bladder cancer. Apparently he had that a year ago, never followed through, and now is scheduled for cystourethrogram or cystourethroscopy in July. When he was initially admitted in the emergency room, there was a denial of methamphetamine and alcohol use by the girlfriend and patient. However, it was later found out during the admission that the patient drank a bottle of Fireball whiskey two to three days before admission, and did do methamphetamines. In the emergency room, he presented as a septic physiology and appeared quite acutely ill. He was high. Heart rate was 130, temperature 38.4, respirations 18, and blood pressure 100/74. He received 2 liters of normal saline and blood pressure was 116/86. White cell count was very low at 1.3, rest of CBC normal. Potassium 2.4. Carbon dioxide low at 20. Anion gap 16. Lactic acid was initially 6.8; it came down to 5.2. AST was 418, ALT 120, alkaline phosphatase 432. Ethyl alcohol level was 34.1. CT scan of the abdomen and pelvis showed mildly dilated proximal small bowel with transition point in the left upper quadrant suggestive of early or partial small bowel obstruction. Patient was admitted as possible sepsis. He was neutropenic, tachycardic, febrile. Urine tox screen showed methamphetamine, opiates. He is not on home opiates and the tox screen was done before he was treated in the ER. HOSPITAL COURSE: He was started on empiric antibiotic therapy, but blood cultures and urine cultures were negative. He was worked up for his elevated liver enzymes. Again, at that point in time, it was not known that he drank a bottle of Fireball whiskey. He did not share that with us until the day of discharge. Hepatitis panel was done and his hepatitis C antibody is positive, but there is no active virus by PCR RNA. His bilirubin was initially 2, went up to 4.6 and dropped for the rest of his stay with the supportive care so that, it was 1.9 on the day of discharge. AST was initially 418 and came down to 78 by the time of discharge. ALT was 120, and came down to 109 by the time of discharge. He was not tolerating food very well. At the end of his stay had nausea. Amylase and lipase were slightly elevated on the day of discharge, but he was still able to keep food down, having adequate oral intake, ambulating in the room, wanting to go home. During his stay, his status deteriorated to the point of kristian delirium and agitation. Required ICU stay with Precedex and Ativan. His toxic metabolic encephalopathy took several days to resolve to finally be able to be discontinued on the Precedex, then transitioned from ICU to med/surg. His neutropenia was only present on the day of admission, and for rest of the stay was normal. He had no further fevers during the rest of his stay. He did develop diarrhea, which was C, diff. negative, Campylobacter negative and the rest of his culture is pending at the time of discharge. Hypokalemia and other electrolyte abnormalities were treated with supplement. We talked about his history of possible bladder cancer. He is promising that he will show up for his urology appointment this time and has scheduled cystourethroscopy in July. Hypertension, which was not present on admission, became more evident during his stay. We resumed his usual medications of losartan and metoprolol and also added a clonidine patch at the time of discharge. With this, his blood pressure is still 152/102. Medicines will need to be adjusted in the outpatient setting. It was strongly recommended to the patient that he seek a support group. Right now, he and his fiancee appear to be arguing tremendously. Nursing and myself witnessed at many a time as the tenseness of his substance abuse and his current hospitalization provoked even more stress. Patient is discharged to live with his fiancee and they are going to be living in her mother's house in [place]. He has asked his prescriptions to be sent to [facility]. He still wishes to be a FULL CODE. PHYSICAL EXAMINATION VITAL SIGNS: On the day of discharge, temperature is 36.5, pulse 67, blood pressure 152/102, respirations 16, 100% on room air. GENERAL: He is a middle-aged, male with a very quiet demeanor. NECK: Supple. LUNGS: Clear. He has a regular rate and rhythm. ABDOMEN: Soft, nontender. EXTREMITIES: Without edema. He is ambulating in the room, able to get out of the bed to do so without any difficulty. Greater than 30 minutes was spent coordinating discharge with the patient. Again, urged to make sure to keep his appointments with Urology; primary care provider, Dr. Hughes; referral for possible evaluation of old hepatitis C, needs a CMP in the next week or two. TD: 06/06/2018 11:25 MICAELA
== END 2018-06-06 10:23 | disposition home or self-care (01) | DRG 917 ==
LOC: EDUNIT# → EDSEX → ED 00:19 → MS2 04:10 → ICU 13:20 → MS2 06-05 15:42
PROVIDERS: ADMIT Internal Medicine; ATTEND Specialist
DX: T51.0X1A Toxic effect of ethanol, accidental (unintentional), initial encounter (principal); G92 Toxic encephalopathy; E87.2 Acidosis; F10.121 Alcohol abuse with intoxication delirium; F15.121 Other stimulant abuse with intoxication delirium; T43.621A Poisoning by amphetamines, accidental (unintentional), initial encounter; I10 Essential (primary) hypertension; I95.9 Hypotension, unspecified; E87.6 Hypokalemia; E83.39 Other disorders of phosphorus metabolism; E83.42 Hypomagnesemia; D70.9 Neutropenia, unspecified; K70.40 Alcoholic hepatic failure without coma; K59.1 Functional diarrhea; R31.9 Hematuria, unspecified; R10.9 Unspecified abdominal pain; G89.29 Other chronic pain; F17.200 Nicotine dependence, unspecified, uncomplicated; Y90.1 Blood alcohol level of 20-39 mg/100 ml; Z78.1 Physical restraint status; Z91.19 Patient's noncompliance with other medical treatment and regimen; Z90.49 Acquired absence of other specified parts of digestive tract; Z79.899 Other long term (current) drug therapy; Z87.19 Personal history of other diseases of the digestive system; Z63.0 Problems in relationship with spouse or partner; Z86.14 Personal history of Methicillin resistant Staphylococcus aureus infection
CPT/HCPCS: 36415; 71045; 74177; 74178; 80053; 80074; 80306; 80307; 80320; 80329; 81001; 82150; 82330; 82550; 83605; 83690; 83735; 84100; 85025; 85610; 85651; 86038; 86665; 87040; 87045; 87046; 87086; 87150; 87275; 87276; 87389; 87493; 87497; 87522; 87640; 87902; 96365; 96367; 96375; 99283; 99284

== ENCOUNTER 2018-12-21 00:19 | Outpatient (CLI) | payer SELFPAY | END 2018-12-21 00:20 | disposition EMS.NT | LOC: EMS 00:19 | PROVIDERS: ATTEND Surgery | DX: R10.9 Unspecified abdominal pain (principal) ==

== ENCOUNTER 2021-07-07 20:18 | Emergency (ER) | payer MEDICAID ==
--- NOTE | 2021-07-07 21:27 | ED Physician Documentation ---
PD HPI SKIN - Stated complaint Stated Complaint: RT FOOT PX/ITCHING - Chief complaint Chief Complaint: Wound - History obtained from History obtained from: Patient - History of Present Illness Timing - onset: Today Timing - duration: Days (1) Timing - details: Abrupt onset (onset this morning of redness/swelling and pain anterior lower leg and mostly dorsum right foot. has had skin sores between toes and on dorsum left toes for several days. Right foot/leg pain/swelling/red just today.) Location: RLE, LLE Quality / character: Painful, Discolored (red), Swelling (dorsum right foot and also to anterior right lower leg.) Associated symptoms: No: Fever, Myalgias, N/V/D Contributing factors: No: Insect bite /sting, Recent illness Similar symptoms before: Diagnosis (has had celluilitis in the past. History of gout remotely.) Recently seen: Not recently seen Review of Systems Constitutional: reports: Other (had gotten feet and socks/shoes wet and cold prolongedly last week.). denies: Fever, Chills Nose: denies: Rhinorrhea / runny nose, Congestion Throat: denies: Sore throat Respiratory: denies: Cough GI: denies: Abdominal Pain, Nausea, Vomiting, Diarrhea Skin: denies: Laceration (s) PD PAST MEDICAL HISTORY - Past Medical History Cardiovascular: Hypertension Respiratory: None Endocrine/Autoimmune: None GI: Pancreatitis, Diverticulitis, Cholelithiasis : None HEENT: None Psych: None Musculoskeletal: None, Gout Derm: None - Past Surgical History Past Surgical History: Yes General: Cholecystectomy, Appendectomy - Present Medications Home Medications: Ambulatory Orders Medication Instructions Recorded Confirmed Mupirocin 2% Oint [Bactroban 2% 1 applic TOP TID #15 gm 07/08/21 Oint] Naproxen 500 mg PO BID 10 Days #20 tab 07/08/21 cephALEXin [Keflex] 500 mg PO QID 7 Days #28 cap 07/08/21 - Allergies Allergies/Adverse Reactions: Allergies Allergy/AdvReac Type Severity Reaction Status Date / Time No Known Drug Allergies Allergy Verified 07/07/21 20:35 - Living Situation Living Situation: reports: With family Living Arrangement: reports: At home - Social History Does the pt smoke?: Yes Smoking Status: Current every day smoker Does the pt drink ETOH?: Yes Does the pt have substance abuse?: No Substance Use and Type: Other (prior IVDU with abscesses. Denies current use. ) - Immunizations Immunizations are current?: Yes - POLST Patient has POLST: No PD ED PE NORMAL - Vitals Vital signs reviewed: Yes - General General: Alert and oriented X 3, Well developed/nourished, Other (does appear uncomfortable due to right lower leg swelling, but mostly tender dorsum of right foot. Good color and cap refill in toes. ) - Neck Neck: Supple, no meningeal sign, No adenopathy - Cardiac Cardiac: RRR, No murmur - Respiratory Respiratory: Clear bilaterally - Abdomen Abdomen: Soft, Non tender - Derm Derm: Normal color, Warm and dry - Extremities Extremities: Other (tender very on dorsum of foot with redness and swelling. Also redness/warmth without much tender anterior lower leg. Purple bruising color around ankle. Achilles firm. Right knee without noted effusion. Anterior bursal area with some swelling. No skin lesions/sores. Right inguinal node felt. ) - Neuro Neuro: Alert and oriented X 3, No motor deficit, No sensory deficit, Normal speech, Other (left foot with skin breakdown partial thickness between toes and dorsal aspect in small 1 cm rounded patches. Consider yeast infection, superfic abscesses, or trench foot skin breakdown. RIght foot without skin breakdown, but had red/swelling dorsal foot/ankle/lower leg. ) Eye Opening: Spontaneous Motor: Obeys Commands Verbal: Oriented GCS Score: 15 Results - Vitals Vitals: Vital Signs - 24 hr 07/07/21 07/07/21 07/08/21 20:25 23:00 00:00 Temperature 37.6 C Heart Rate 116 H 99 114 H Respiratory 18 16 20 Rate Blood Pressure 125/64 161/103 H 156/84 H O2 Saturation 100 100 100 07/08/21 07/08/21 01:17 01:38 Temperature 37.4 C Heart Rate 102 H 99 Respiratory 18 18 Rate Blood Pressure 143/78 H 143/78 H O2 Saturation 100 100 Oxygen O2 Source Room air - Labs Labs: Laboratory Tests 07/07/21 07/07/21 07/07/21 21:00 21:00 21:00 WBC 8.8 RBC 4.72 Hgb 12.8 L Hct 38.7 L MCV 82.0 MCH 27.1 MCHC 33.1 RDW 13.2 Plt Count 186 MPV 10.0 Neut # (Auto) 7.0 H Lymph # (Auto) 1.3 L [place] # (Auto) 0.5 Eos # (Auto) 0.0 Baso # (Auto) 0.0 Absolute Nucleated RBC 0.00 Nucleated RBC % 0.0 Platelet Estimate NORMAL (130-450,000) Platelet Morphology PLATELET CLUMPING RBC Morph Micro Appear NORMAL APPEARANCE Sodium 130 L Potassium 3.4 L Chloride 94 L Carbon Dioxide 25 Anion Gap 11.0 BUN 18 Creatinine 1.0 Estimated GFR (MDRD) 79 L Glucose 136 H Lactic Acid 2.2 Calcium 8.5 Total Bilirubin 0.7 AST 26 ALT 22 Alkaline Phosphatase 165 H Total Creatine Kinase Total Protein 8.4 H Albumin 3.5 Globulin 4.9 H Albumin/Globulin Ratio 0.7 L Lipase 17 L 07/07/21 21:00 WBC RBC Hgb Hct MCV MCH MCHC RDW Plt Count MPV Neut # (Auto) Lymph # (Auto) [place] # (Auto) Eos # (Auto) Baso # (Auto) Absolute Nucleated RBC Nucleated RBC % Platelet Estimate Platelet Morphology RBC Morph Micro Appear Sodium Potassium Chloride Carbon Dioxide Anion Gap BUN Creatinine Estimated GFR (MDRD) Glucose Lactic Acid Calcium Total Bilirubin AST ALT Alkaline Phosphatase Total Creatine Kinase 67 Total Protein Albumin Globulin Albumin/Globulin Ratio Lipase - Rads (name of study) duplex right leg Radiology: Prelim report reviewed (no DVT. fluid collection anterior knee c/w effusion anteriorly. Right inguinal lymph node noted. ), See rad report right ankle Radiology: Prelim report reviewed (no fractures), See rad report PD MEDICAL DECISION MAKING - ED course Complexity details: reviewed results (duplex without DVT. fluid collection around knee c/w effusion anteriorly. ), re-evaluated patient (he does not appear septic. WBC good. Lactate wnl for lab values. Afebrile. Right lower leg with redness/swelling, and some bruising noted around ankle but not tender. ), considered differential (skin breakdown between toes with whitish color c/w possible wet/cold exposure (trench foot) versus yeast. Then with swelling/redness right lower leg to knee. ), d/w patient ED course: Redness and tenderness markedly on the dorsum of the foot without any obvious skin lesions. The redness extends up on the anterior lower leg to just below the knee. There is a bruising coloration dark purple medial and lateral around the ankle without any tenderness per se. Consideration could be gout versus cellulitis versus inflammatory reaction to bruising or other concerns. We will check labs for indicators of sepsis such as lactate and white count. Can check for deep muscle injury with a CK. Also check basic electrolytes. After evaluation with ultrasound and x-ray and labs, the patient states he got a phone call from his family member who said they need him to take care of some issues in [place]. He states he needs to be discharged and will be writing to [facility] tomorrow and will be there several days to week. Consideration was to perhaps hold him in the ER and get a repeat IV antibiotics and reassess in the morning as there were no beds available for placing them in the hospital. However he would rather be discharged with oral medications and will follow up. This is reasonable given no signs of sepsis nor deep tissue involvement with normal CK and good color and capillary refill and pulses. Departure - Departure Disposition: 01 Home, Self Care Clinical Impression: Cellulitis of lower leg, Skin ulcer, limited to breakdown of skin Condition: Stable Record reviewed to determine appropriate education?: Yes Instructions: ED Infec Skin Cellulitis Prescriptions: Mupirocin 2% Oint [Bactroban 2% Oint] 1 applic TOP TID #15 gm cephALEXin [Keflex] 500 mg PO QID 7 Days #28 cap Naproxen 500 mg PO BID 10 Days #20 tab Comments: For the left foot and toes, apply mupirocin antibiotic ointment to the open sores and dressed them and cover them with bandages. You could soak the areas with warm water 2-3 times a day to help promote cleansing and drainage prior to the appointment. Alternatively would be just cleaning with soap and water. The right foot and lower leg do not have apparent open sores. Presume there is some introduction of germs into the skin layer so still cleaning the lower leg with soap and water is good once or twice daily. Cephalexin antibiotic 4 times a day for the next week. Thomas wrap elevate and rest the right leg often to help reduce swelling. Anti-inflammatories of naproxen twice daily with food for the next week. To that add Tylenol every 4-6 hours if needed for pain. Recheck if not improving well over the next 2 to 3 days and follow-up in an ER if worsening. Crutches to reduce weightbearing on the foot to help with comfort. Discharge Date/Time: 07/08/21 01:38
[2021-07-07 21:29] LABS: BASOPHILS % (AUTO) 0.2 %; EOSINOPHILS % (AUTO) 0.1 %; HCT - HEMATOCRIT 38.7 % (42.0-52.0); HGB - HEMOGLOBIN 12.8 g/dL (14.0-18.0); LYMPHOCYTES # (AUTO) 1.3 10^3/uL (1.5-3.5); LYMPHOCYTES % (AUTO) 14.2 %; MEAN CORPUSCULAR HEMOGLOBIN 27.1 pg (27.0-31.0); MEAN CORPUSCULAR HGB CONC 33.1 g/dL (32.0-36.0); MONOCYTES # (AUTO) 0.5 10^3/uL (0.0-1.0); MONOCYTES % (AUTO) 5.7 %; NEUTROPHILS % (AUTO) 79.5 %; PLT - PLATELET COUNT 186 10^3/uL (130-450); RED BLOOD COUNT 4.72 10^6/uL (4.70-6.10); RED CELL DISTRIBUTION WIDTH 13.2 % (12.0-15.0); WHITE BLOOD COUNT 8.8 x10^3/uL (4.8-10.8)
[2021-07-07] MEDS ORDERED: HYDROmorphone 1 MG/ML CARPUJECT IVP STA (21:40)
[2021-07-07] MEDS ORDERED: ceFAZolin 2 GM in SODIUM CHLORIDE 0.9% 100ML 100 ML IV STA (21:40)
[2021-07-07] MEDS ORDERED: FLUCONAZOLE 100 MG TABLET PO STA (21:40)
[2021-07-07] MEDS ORDERED: KETOROLAC 15 MG/ML VIAL IVP STA (21:40)
[2021-07-07 21:42] LABS: ALBUMIN 3.5 g/dL (3.2-5.5); ALBUMIN/GLOBULIN RATIO 0.7 (1.0-2.2); BILIRUBIN,TOTAL 0.7 mg/dL (0.2-1.0); CALCIUM 8.5 mg/dL (8.5-10.3); POTASSIUM 3.4 mmol/L (3.5-5.0); TOTAL PROTEIN 8.4 g/dL (6.7-8.2)
[2021-07-07 21:52] LABS: PLATELET ESTIMATE, MANUAL NORMAL (130-450,000) (NORMAL); PLATELET MORPHOLOGY PLATELET CLUMPING (NORMAL); RBC MORPHOLOGY (MULTIPLE) NORMAL APPEARANCE (NORMAL)
[2021-07-07] MEDS ORDERED: SODIUM CHLORIDE 0.9% 1,000 ML IV STA (22:36)
--- NOTE | 2021-07-07 23:20 | Ultrasound Report ---
PROCEDURE: Duplex Ext Veins Right INDICATIONS: right lower leg swelling/tender TECHNIQUE: Real-time imaging, as well as color and pulse Doppler interrogation, were performed of the lower extr emity deep veins from the inguinal ligament to the popliteal fossa. COMPARISON: None. FINDINGS: The deep veins above the calf are normally compressible, and free of intraluminal thrombus . Color and pulse Doppler demonstrate normal phasic intraluminal flow. There is normal augmentation response to distal compression maneuver. The calf veins were not well seen. There is an anterolateral fluid collection likely representing a joint effusion. Mildly enlarged righ t inguinal lymph nodes are demonstrated, with the largest measuring up to 1.6 cm in short axis. These demonstrate preserved fatty bere. IMPRESSION: 1. No evidence of deep venous thrombosis within the right lower extremity above the calf. 2. The right calf veins were not well evaluated. 3. Fluid collection in the anterolateral knee may represent a joint effusion. Recommend correlation c linically and if indicated further evaluation may be obtained with cross-sectional imaging. 4. Mildly enlarged right inguinal lymph nodes with preserved fatty bere are nonspecific but likely re active. Reviewed by: David Vaz MD on 07/07/2021 11:19 PM PST Approved by: David Vaz MD on 07/07/2021 11:19 PM PST Station ID: [id number]
[2021-07-08] MEDS ORDERED: HYDROcod/ACET 5/325 Prepack 4 PO STA (00:52)
[2021-07-08] MEDS ORDERED: MUPIROCIN 2% OINT 1 GM TOP STA (00:52)
[2021-07-08] MEDS ORDERED: CEPHALEXIN 250 MG Prepack 8 CAP BOTTLE PO STA (00:52)
--- NOTE | 2021-07-08 01:13 | XRAY Report ---
PROCEDURE: Ankle 3 View RT INDICATIONS: ankle pain/swelling TECHNIQUE: 3 views of the ankle were acquired. COMPARISON: None. FINDINGS: Bones: No fractures or dislocations. Ankle mortise is normally aligned. No suspicious bony lesions . Soft tissues: There is periarticular soft tissue swelling at the ankle. No tibiotalar joint effusion . Achilles tendon appears intact. IMPRESSION: 1. No fracture or dislocation. Reviewed by: David Katz MD on 07/08/2021 1:12 AM [facility] Approved by: David Katz MD on 07/08/2021 1:12 AM PST Station ID: [id number]
[2021-07-08 01:20] VITALS: BP 143/78
== END 2021-07-08 01:38 | disposition home or self-care (01) ==
LOC: ED 20:18
DX: L03.115 Cellulitis of right lower limb (principal); L97.521 Non-pressure chronic ulcer of other part of left foot limited to breakdown of skin; I10 Essential (primary) hypertension; F17.200 Nicotine dependence, unspecified, uncomplicated
CPT/HCPCS: 36415; 73610; 80053; 82550; 83605; 83690; 85025; 93971; 96365; 96375; 99284; A9270; J1170; 87040

== ENCOUNTER 2022-08-28 14:15 | Emergency (ER) | payer OTHER, MEDICAID ==
--- NOTE | 2022-08-28 14:24 | ED Physician Documentation ---
PD HPI CHEST PAIN - Stated complaint Stated Complaint: FIT - Chief complaint Chief Complaint: Cardiac - History obtained from History obtained from: Patient, Police (brought by [facility] for evaluation, treatment and clearance for confinement. I did not ask what he was being arrrested for.) - History of Present Illness Timing - onset: Today Timing - onset during: Light activity Timing - details: Gradual onset (he states he has had epigastric to substernal area pain since this aM, worse with movement and palpation, some worse with eating. not improved with rest nor aspirin. He is concerned he is having a heart attack. Also has history of liver cirrhosis and states that his chronic liver apin is worse.), Still present, Waxing and waning Quality: Tightness, Aching, Pain Location: Epigastric Radiation: Back Improved by: No: Rest, ASA Worsened by: Inspiration, Movement, Palpation. No: Exertion, Eating Associated symptoms: General Weakness Similar symptoms before: Diagnosis (has had similar with prior gastritis episodes and liver inflammation. Denies pancreatitis.) Review of Systems Constitutional: denies: Fever, Chills, Myalgias Neurologic: reports: Generalized weakness. denies: Focal weakness, Numbness, Near syncope, Altered mental status, Headache PD PAST MEDICAL HISTORY - Past Medical History Cardiovascular: Hypertension (he states has not been on meds for several months. ) Respiratory: None Endocrine/Autoimmune: None GI: Pancreatitis, Diverticulitis, Cholelithiasis : None HEENT: None Psych: None Musculoskeletal: None, Gout Derm: None - Past Surgical History Past Surgical History: Yes General: Cholecystectomy, Appendectomy - Present Medications Home Medications: Ambulatory Orders Medication Instructions Recorded Confirmed Famotidine [Pepcid] 20 mg PO BID #30 tablet 08/28/22 Losartan Potassium [Cozaar] 100 mg PO DAILY #30 tablet 08/28/22 Meclizine HCl [Motion Sickness] 25 mg PO Q6H PRN #30 tablet 08/28/22 - Allergies Allergies/Adverse Reactions: Allergies Allergy/AdvReac Type Severity Reaction Status Date / Time No Known Drug Allergies Allergy Verified 07/07/21 20:35 - Social History Does the pt smoke?: Yes Smoking Status: Current every day smoker Does the pt drink ETOH?: Yes Does the pt have substance abuse?: No - Immunizations Immunizations are current?: Yes - POLST Patient has POLST: No PD ED PE NORMAL - Vitals Vital signs reviewed: Yes (BP elevatted) - General General: Alert and oriented X 3, Well developed/nourished, Other (grimacing and states he is in a lot of pain and gesturing to epigastric area. ) - HEENT HEENT: PERRL (nonicteric), EOMI - Cardiac Cardiac: RRR, No murmur - Respiratory Respiratory: No respiratory distress, Clear bilaterally - Abdomen Abdomen: Normal bowel sounds, Soft, Non distended, No organomegaly, Other (tender with guarding epigastric area. no rebound.) - Back Back: No CVA TTP - Derm Derm: Normal color, Warm and dry - Extremities Extremities: Normal ROM s pain, No calf tenderness / cord, Other (1+ edema in both lower legs from ankles up to knees. not tender. ) - Neuro Neuro: Alert and oriented X 3, No motor deficit, Normal speech Results - Vitals Vitals: Vital Signs - 24 hr 08/28/22 08/28/22 08/28/22 14:17 14:24 14:25 Temperature 36.5 C Heart Rate 68 65 Respiratory 16 15 16 Rate Blood Pressure 172/101 H O2 Saturation 100 100 08/28/22 08/28/22 08/28/22 14:26 15:51 16:05 Temperature Heart Rate 94 73 65 Respiratory 18 22 14 Rate Blood Pressure 166/106 H 211/108 H O2 Saturation 100 100 100 08/28/22 08/28/22 08/28/22 16:06 17:05 17:09 Temperature 36.8 C Heart Rate 90 Respiratory 14 22 Rate Blood Pressure 192/120 H 187/112 H O2 Saturation 100 Oxygen O2 Source Room air - Labs Labs: Laboratory Tests 08/28/22 08/28/22 08/28/22 15:07 15:07 15:07 WBC 5.1 RBC 5.11 Hgb 13.3 L Hct 42.3 MCV 82.8 MCH 26.0 L MCHC 31.4 L RDW 13.7 Plt Count 171 MPV 9.9 Neut # (Auto) 3.1 Lymph # (Auto) 1.4 L Bullitt # (Auto) 0.4 Eos # (Auto) 0.2 Baso # (Auto) 0.0 Absolute Nucleated RBC 0.00 Nucleated RBC % 0.0 Sodium 134 L Potassium 3.7 Chloride 102 Carbon Dioxide 25 Anion Gap 7.0 BUN 14 Creatinine 0.9 Estimated GFR (MDRD) 89 Glucose 108 H Calcium 9.0 Magnesium 2.0 Total Bilirubin 0.4 AST 21 ALT 18 Alkaline Phosphatase 125 H Ammonia 31.7 Troponin I High Sens B-Natriuretic Peptide Total Protein 8.3 H Albumin 3.7 Globulin 4.6 H Albumin/Globulin Ratio 0.8 L Lipase 25 08/28/22 08/28/22 15:07 15:07 WBC RBC Hgb Hct MCV MCH MCHC RDW Plt Count MPV Neut # (Auto) Lymph # (Auto) Bullitt # (Auto) Eos # (Auto) Baso # (Auto) Absolute Nucleated RBC Nucleated RBC % Sodium Potassium Chloride Carbon Dioxide Anion Gap BUN Creatinine Estimated GFR (MDRD) Glucose Calcium Magnesium Total Bilirubin AST ALT Alkaline Phosphatase Ammonia Troponin I High Sens 2.9 B-Natriuretic Peptide 36 Total Protein Albumin Globulin Albumin/Globulin Ratio Lipase - Rads (name of study) upper abd u/trasound. Radiology: Prelim report reviewed (no acute process. poor visualization of whole pancreas and liver. CBD appears normal in visualized portion. right lung effusion. ), See rad report chest xray Radiology: Prelim report reviewed (no acute process. No effusion. ), See rad report PD Medical Decision Making - ED course Complexity details: reviewed old records, reviewed results (gallbladder priorly resected. U/S to evaluate for pancreas, CBD, liver area. This found apparent right effusion. CXR to further evaluate the reported effusion.), considered differential (history of alcohol abuse and liver disease. so assumption was for pancreatitis or gastritis, or psoudocyst.), d/w patient, d/w supply chain consultant (call [facility] for [facility] care [facility]. NO answer so left a message on voicemail of findings and treatment plan conveyed. ) ED course: He had ECG, CXR and trop/labs to evleate for potential heart mi/CAD or lung processes. He was given GI meds and also zofran for nause, toradol and dilaudid for pain. this did improve his symptoms. Still some pain but no nausea. Able to take sips of water and oral meds. Departure - Departure Disposition: 01 Home, Self Care Clinical Impression: Acute epigastric pain, Elevated blood pressure reading, Normal ECG, Dizziness Condition: Stable Record reviewed to determine appropriate education?: Yes Instructions: ED Epigastric Pain [facility] Prescriptions: Losartan Potassium [Cozaar] 100 mg PO DAILY #30 tablet Meclizine HCl [Motion Sickness] 25 mg PO Q6H PRN #30 tablet PRN Reason: Vertigo Famotidine [Pepcid] 20 mg PO BID #30 tablet Comments: Your chest x-ray and EKG and ultrasound did not show any acute abnormalities. Blood tests looking at heart failure and heart attack are normal. No signs of inflammation of the pancreas or liver at this time. I presume your symptoms relate to the stomach with gastritis or ulcer type symptoms. We can use famotidine twice daily for the next couple of weeks. Add in some antacid such as Maalox or Mylanta. He can use Tylenol every 4-6 hours if needed for pain. Meclizine if needed for your dizziness. Your blood pressure is elevated and you had been on medicine in the past. We can start a blood pressure medicine losartan 100 mg daily for you. Recheck over the next few days. Discharge Date/Time: 08/28/22 17:15
[2022-08-28] MEDS ORDERED: MECLIZINE 12.5 MG TABLET PO STA (14:43)
[2022-08-28] MEDS ORDERED: MAG HYDROX/AL HYDROX/SIMETH 30 ML UDC PO STA (14:43)
[2022-08-28] MEDS ORDERED: ONDANSETRON 4 MG/2 ML VIAL IVP STA (14:43)
[2022-08-28] MEDS ORDERED: FAMOTIDINE 20 MG/2 ML VIAL IVP STA (14:45)
[2022-08-28] MEDS ORDERED: KETOROLAC 15 MG/ML VIAL IVP STA (14:46)
[2022-08-28 15:13] LABS: BASOPHILS % (AUTO) 0.6 %; EOSINOPHILS # (AUTO) 0.2 10^3/uL (0.0-0.7); EOSINOPHILS % (AUTO) 3.9 %; HCT - HEMATOCRIT 42.3 % (42.0-52.0); HGB - HEMOGLOBIN 13.3 g/dL (14.0-18.0); LYMPHOCYTES # (AUTO) 1.4 10^3/uL (1.5-3.5); LYMPHOCYTES % (AUTO) 27.8 %; MEAN CORPUSCULAR HGB CONC 31.4 g/dL (32.0-36.0); MEAN CORPUSCULAR VOLUME 82.8 fL (80.0-94.0); MEAN PLATELET VOLUME 9.9 fL (7.4-11.4); MONOCYTES # (AUTO) 0.4 10^3/uL (0.0-1.0); MONOCYTES % (AUTO) 7.6 %; NEUTROPHILS # (AUTO) 3.1 10^3/uL (1.5-6.6); NEUTROPHILS % (AUTO) 59.9 %; PLT - PLATELET COUNT 171 10^3/uL (130-450); RED BLOOD COUNT 5.11 10^6/uL (4.70-6.10); RED CELL DISTRIBUTION WIDTH 13.7 % (12.0-15.0); WHITE BLOOD COUNT 5.1 x10^3/uL (4.8-10.8)
[2022-08-28 15:28] LABS: ALBUMIN 3.7 g/dL (3.2-5.5); ALBUMIN/GLOBULIN RATIO 0.8 (1.0-2.2); BILIRUBIN,TOTAL 0.4 mg/dL (0.2-1.0); CREATININE 0.9 mg/dL (0.6-1.2); POTASSIUM 3.7 mmol/L (3.5-5.0); TOTAL PROTEIN 8.3 g/dL (6.7-8.2)
--- NOTE | 2022-08-28 15:31 | XRAY Report ---
PROCEDURE: Chest 1 View X-Ray INDICATIONS: chest pain TECHNIQUE: One view of the chest was acquired. COMPARISON: 05/31/2018 FINDINGS: Surgical changes and devices: None. Lungs and pleura: No pleural effusions or pneumothorax. Lungs are clear. Mediastinum: Mediastinal contours appear normal. Heart size is normal. Bones and chest wall: No suspicious bony lesions. Overlying soft tissues appear unremarkable. IMPRESSION: No acute process. Reviewed by: Rick Patten MD on 08/28/2022 3:30 PM PST Approved by: Rick Patten MD on 08/28/2022 3:30 PM PST Station ID: [id number]
[2022-08-28] MEDS ORDERED: MECLIZINE 12.5 MG TABLET PO ONE (15:56)
[2022-08-28] MEDS ORDERED: LOSARTAN 50 MG TABLET PO STA (16:26)
[2022-08-28] MEDS ORDERED: HYDROmorphone 0.5 MG/0.5 ML SYRINGE IVP STA (16:27)
[2022-08-28 17:05] VITALS: BP 187/112
--- NOTE | 2022-08-28 17:18 | Ultrasound Report ---
PROCEDURE: Abdomen Limited INDICATIONS: upper abd pain; h/o liver dz. TECHNIQUE: Real-time focused scanning was performed of the abdomen, with image documentation. COMPARISON: CT abdomen and pelvis dated 06/05/2018 FINDINGS: The liver is of a coarsened echo pattern and is diffusely echogenic. No focal liver mass i dentified. Gallbladder is surgically absent. No dilated bile ducts. Common bile duct measures 5.1 mm. Right kidney measures 9.0 cm. No right hydronephrosis. IMPRESSION: 1. Coarsened liver echo pattern may indicate hepatocellular disease. 2. Remote cholecystectomy. 3. No biliary ductal dilatation. Reviewed by: Jacky Rai MD on 08/28/2022 5:16 PM PST Approved by: Jacky Rai MD on 08/28/2022 5:16 PM PST Station ID: [id number]
== END 2022-08-28 17:15 | disposition home or self-care (01) ==
LOC: ED 14:15
DX: Z02.89 Encounter for other administrative examinations (principal); R10.13 Epigastric pain; I10 Essential (primary) hypertension; R42 Dizziness and giddiness; F17.200 Nicotine dependence, unspecified, uncomplicated
CPT/HCPCS: 36415; 71045; 76705; 80053; 82140; 83690; 83735; 83880; 84484; 85025; 93005; 96374; 96375; 99284; 99285; A9270; J1170